=== PATIENT | male | born 1965 | race Caucasian/White ===

== ENCOUNTER → 2017-12-15 16:47 | Outpatient (CLI) | payer BC, OTHER, SELFPAY ==
--- NOTE | 2017-12-15 16:51 | DI.MRI.S_ITS ---
PROCEDURE: MR SHOULDER LT WO CON INDICATIONS: BICEPS TENDONITIS TECHNIQUE: Noncontrast oblique coronal T2 fast spin echo with fat saturation, oblique sagittal T1 spin echo and T2 fast spin echo with fat saturation, axial T1 spin echo and T2 fast spin echo with fat saturation through the shoulder. COMPARISON: None. FINDINGS: Image quality: Excellent. Rotator cuff: There is tendinosis of a low-grade articular surface partial-thickness tear involving distal supraspinatus and infraspinatus at their insertions aren't greater tuberosity of humeral head extending to the myotendinous junction. Tendinosis and low-grade intrasubstance tear involving distal infraspinatus is also seen. No full-thickness rotator cuff tendon rupture. Sagittal images demonstrate mild supraspinatus muscle atrophy. Bones and bursae: No bone marrow contusions or fractures. Mild a.c. joint and glenohumeral joint osteoarthritis is seen. The acromion demonstrates conventional anatomy, without an os acromiale. No pathologic subacromial-subdeltoid or subcoracoid bursal fluid is present. Capsule and soft tissues: In the absence of intra-articular contrast, there is suggestion of superior anterior labral tear extending from 12 to 1:00 position. The long head of the biceps tendon demonstrates normal location and morphology. The rotator interval appears normal, without fibrosis. The coracohumeral ligament is normal in thickness. IMPRESSION: 1. Tendinosis and low-grade articular surface partial-thickness tear involving distal supraspinatus and infraspinatus. Tendinosis and low-grade intrasubstance partial-thickness tear involving distal subscapularis. No full-thickness rotator cuff tendon rupture. Mild supraspinatus muscle atrophy. 2. Mild a.c. joint and glenohumeral joint osteoarthritis. 3. Suggestion of focal superior anterior labral tear at 12 to 1:00 position. Dictated by: Bolivar Pulido M.D. on 12/18/2017 at 10:56 Approved by: Bolivar Pulido M.D. on 12/18/2017 at 10:59
== END ==
PROVIDERS: Family Provider Internal Medicine; PCP Internal Medicine; Visit Provider Orthopaedic Surgery
DX: M75.22 Bicipital tendinitis, left shoulder (principal); M75.112 Incomplete rotator cuff tear or rupture of left shoulder, not specified as traumatic; M19.012 Primary osteoarthritis, left shoulder
CPT/HCPCS: 73221

== ENCOUNTER → 2018-02-20 10:37 | Outpatient (CLI) | payer BC, OTHER, SELFPAY ==
--- NOTE | 2018-02-20 | DI.US.S_ITS ---
PROCEDURE: US ABDOMEN COMPLETE INDICATIONS: ABDOMINAL PAIN TECHNIQUE: Real-time scanning was performed of the abdominal and retroperitoneal organs, with image documentation. COMPARISON: None. FINDINGS: Liver: Liver is diffusely increased in echogenicity. No focal hepatic abnormalities identified. Normal hepatic size. Gallbladder: No gallstones identified. Normal gallbladder wall. No pericholecystic fluid. Negative sonographic Elkins sign. Biliary ducts: Intrahepatic bile ducts are non-dilated. Extrahepatic bile duct caliber measures 4.0 mm. Normal is 6-7 mm or less in diameter, or 10 mm or less post-cholecystectomy. Pancreas: Visualized portions of the pancreas are sonographically normal. Spleen: Spleen is normal in size and homogeneous in echotexture. Kidneys: Kidneys are normal in size and echotexture. Right kidney measures 12.3 cm long; left kidney measures 12.8 cm long. No hydronephrosis or nephrolithiasis. No solid masses. Aorta: Visualized aorta is normal in caliber at less than 3 cm. Iliacs: Not visualized. IVC: Intrahepatic inferior vena cava is patent. Miscellaneous: No free abdominal fluid. IMPRESSION: Increased hepatic echogenicity noted possibly related to hepatic steatosis but other sources of hepatocellular disease cannot be excluded. Recommend clinical correlation. Dictated by: Josh JOSHUA Interpreted: Veronica Chang MD on 02/20/2018 at 11:58 Approved by: Veronica Chang M.D. on 02/20/2018 at 16:13
== END ==
PROVIDERS: Family Provider Internal Medicine; PCP Internal Medicine; Visit Provider Internal Medicine
DX: R10.84 Generalized abdominal pain (principal)
CPT/HCPCS: 76700

== ENCOUNTER → 2018-12-10 16:42 | Outpatient (CLI) | payer BC, OTHER, SELFPAY ==
--- NOTE | 2018-12-10 | DI.RAD.S_ITS ---
PROCEDURE: XR CHEST 2V INDICATIONS: Chronic cough TECHNIQUE: 2 views of the chest were acquired. COMPARISON: None. FINDINGS: Surgical changes and devices: None. Lungs and pleura: Lungs are clear. No pleural effusions or pneumothorax. Mediastinum: Mediastinal contours are normal. Heart size is normal. Bones and chest wall: No suspicious bony abnormalities. Soft tissues appear unremarkable. IMPRESSION: Normal for age, source of current chronic cough symptoms is not seen. Dictated by: Renny Rosen M.D. on 12/10/2018 at 17:11 Approved by: Renny Rosen M.D. on 12/10/2018 at 17:11
== END ==
PROVIDERS: PCP Internal Medicine; Visit Provider Internal Medicine
DX: R05 Cough (principal)
CPT/HCPCS: 71046

== ENCOUNTER 2020-03-07 09:52 | Emergency (ER) | payer OTHER, SELFPAY ==
[2020-03-07] VITALS (18 sets, daily range): BP systolic 142–172; BP diastolic 68–98; PULSE 68–99; RESP 18–24; TEMP 36.7; O2SAT 92–98
--- NOTE | 2020-03-07 09:56 | DI.RAD.S_ITS ---
PROCEDURE: XR CHEST 1V INDICATIONS: Chest pain TECHNIQUE: One view of the chest was acquired. COMPARISON: [facility], CR, XR CHEST 2V, 12/10/2018, 16:47. FINDINGS: Surgical changes and devices: None. Lungs and pleura: Lungs are clear. No pleural effusions or pneumothorax. Mediastinum: Mediastinal contours appear normal. Heart size is normal. Bones and chest wall: No suspicious bony lesions. Overlying soft tissues appear unremarkable. IMPRESSION: Stable radiographic evaluation of the chest without acute cardiopulmonary abnormalities or focal airspace disease. Dictated by: Chris Ni M.D. on 03/07/2020 at 9:31 Approved by: Chris Ni M.D. on 03/07/2020 at 9:31
[2020-03-07 10:14] LABS: Add Manual Diff / Slide Review NO; Basophils Absolute Auto 100 /uL (0-100); Basophils Percent Auto 0.9 % (0-2); Eosinophils Absolute Auto 100 /uL (0-450); Eosinophils Percent Auto 1.6 % (2-4); Hematocrit 41.8 % (41-53); Hemoglobin 14.5 g/dL (13.5-17.5); Lymphocytes Absolute Auto 1300 /uL (1100-4500); Lymphocytes Percent Auto 21.2 % (25-40); Mean Corpuscular HGB Conc 34.6 % (30-36); Mean Corpuscular Hemoglobin 30.7 PG (26-34); Mean Corpuscular Volume 88.6 fL (80-100); Monocytes Absolute Auto 400 /uL (0-900); Monocytes Percent Auto 6.4 % (3-14); Neutrophils Absolute Auto 4300 /uL (1500-7000); Neutrophils Percent Auto 69.9 % (50-75); Platelet Count 214 X10^3/uL (150-400); Red Blood Cell Count 4.71 X10^6/uL (4.5-5.9); Red Cell Distribution Width 13.6 % (11.6-14.8); White Blood Cell Count 6.2 X10^3/uL (4.5-11.0)
[2020-03-07 10:21] LABS: INR 1.1 (0.9-1.3); Prothrombin Time 12.3 SECONDS (10.1-12.7)
[2020-03-07 10:24] LABS: PTT Partial Thromboplastin Tim 27 SECONDS (26.4-36.2)
[2020-03-07 10:25] LABS: Alanine Aminotransferase 29 IU/L (<50); Albumin 4.4 g/dL (3.5-5.0); Albumin Globulin Ratio 1.5 (1.0-2.8); Alkaline Phosphatase 64 U/L (38-126); Aspartate Aminotransferase 26 IU/L (17-59); BUN Creatinine Ratio 18.1 (6-22); Bilirubin Total 0.4 mg/dL (0.2-1.3); Blood Urea Nitrogen 17 mg/dL (9-20); Calcium 9.1 mg/dL (8.4-10.2); Carbon Dioxide 28 mmol/L (22-32); Chloride 100 mmol/L (98-107); Creatine Kinase 38 U/L (55-170); Estimated Glomerular Filt Rate > 60.0 mL/min (>60); Glucose 177 mg/dL (70-100); HEMOLYSIS < 15 (0-50); Lipase 83 U/L (23-300); Potassium 4.3 mmol/L (3.4-5.1); Sodium 137 mmol/L (137-145); Total Protein 7.4 g/dL (6.3-8.2)
[2020-03-07 10:36] LABS: NT-proBNP (BNP-Adult 18+) 23 pg/mL (<125); Troponin I < 0.012 ng/mL (0.01-0.034)
--- NOTE | 2020-03-07 10:38 | ED_ITS ---
HPI - Chest Pain General Chief Complaint: Chest Pain Stated Complaint: chest pressure Time Seen by Provider: 03/07/20 09:55 Source: patient and EMS Mode of arrival: EMS Limitations: no limitations History of Present Illness HPI narrative: Patient is a 54-year-old male with a history of thyroid/hypertension/hyperlipidemia and depression issues here for evaluation approximately 2 hours after he states he was sitting on his couch at home and got a very flushed sensation. He described in his chest and also radiating into his arms. No nausea or vomiting. He did have chest pressure at the time. He did take 4 baby aspirin per EMS recommendation. When EMS arrived they did give him nitroglycerin which resolved his symptoms. No fevers, no headache. The time my evaluation patient was symptom free other than feeling somewhat jittery. Related Data Home Medications Medication Instructions Recorded Confirmed fenofibrate micronized 134 mg 134 mg PO DAILY 09/05/18 03/07/20 capsule lansoprazole 15 mg capsule,delayed 15 mg PO QAM 09/05/18 03/07/20 release lisinopril 20 mg tablet 20 mg PO QAM 09/05/18 03/07/20 trazodone 50 mg tablet 50 mg PO BEDTIME PRN 09/05/18 03/07/20 escitalopram oxalate 20 mg PO DAILY 03/07/20 03/07/20 levothyroxine [Synthroid] 75 mcg PO DAILY 03/07/20 03/07/20 rosuvastatin 5 mg PO QAM 03/07/20 03/07/20 Allergies Allergy/AdvReac Type Severity Reaction Status Date / Time No Known Drug Allergies Allergy Unverified 02/04/19 16:13 Review of Systems Constitutional Constitutional: Denies fever(s) and Denies headache(s) ENT Ears, Nose, Mouth, and Throat: Denies headache(s) Cardiovascular Cardiovascular: Reports chest pain (Chest pressure), Denies lightheadedness and Reports dyspnea Respiratory Respiratory: Reports dyspnea Gastrointestinal Gastrointestinal: Denies abdominal pain, Denies nausea and Denies vomiting Genitourinary Genitourinary: Denies dysuria Genitourinary: Denies dysuria Musculoskeletal Musculoskeletal: Denies arthralgias and Denies myalgias Integumentary/Breasts Skin/Breast: Denies rash Neurologic Neurologic: Denies behavioral changes and Denies headache(s) Psychiatric Psychiatric: Denies behavioral changes Hematologic/Lymphatic Hematologic/Lymphatic: Denies easy bleeding and Denies easy bruising Allergic/Immunologic Allergic/Immunologic: Denies urticaria Patient History Medical History Allergic rhinitis (Chronic) Anxiety (Chronic) Depression (Chronic) Fatigue (Chronic ~01/2019) GERD with esophagitis (Chronic) Hyperlipidemia (Chronic) Hypertension (Chronic) Hypertriglyceridemia (Chronic) Hypothyroidism (acquired) (Chronic) Insomnia (Chronic) [place] (nonalcoholic steatohepatitis) (Chronic) Nocturnal hypoxemia (Chronic ~01/2019) Obesity (BMI 30-39.9) (Chronic) Obstructive sleep apnea (Chronic ~01/2019) Snoring (Chronic) Family History (Updated 12/25/19 @ 17:20 by VELMA Miller) Father Prostate cancer Mother Atrial fibrillation Family/Other Rheumatoid arthritis Social History Smoking Status: Former smoker alcohol intake: current (2 drinks nightly) substance use type: does not use Smoking Status: Former smoker alcohol intake frequency: 3 or more drinks per day Substance Use Type: does not use Exam Initial Vital Signs Initial Vital Signs: Vital Signs Temperature 98.1 F 03/07/20 09:54 Pulse Rate 95 H 03/07/20 09:54 Respiratory Rate 20 03/07/20 09:54 Blood Pressure 151/87 H 03/07/20 09:54 Pulse Oximetry 98 03/07/20 09:54 Const General: cooperative and comfortable Limitations: mental status not altered HENMT Head: normal to inspection and normocephalic Resp Effort & Inspection: normal respiratory effort Auscultation: clear to auscultation bilaterally Cardio Rate: regular rate Rhythm: regular rhythm GI Inspection: non-distended Palpation: soft Skin Lesions: no lesions Rashes: no rashes Neuro General: patient alert, patient awake and patient oriented x3 Cognition: normal cognition Speech: speech normal Extrem General: normal to inspection and capillary refill normal Psych Appearance: grossly normal and well kempt Scores GCS [place] coma scale eye opening: Spontaneous Pietro coma scale verbal response: Orientated [place] coma scale motor response: Obey commands Pietro coma scale total score: 15 HEART Score Heart Score history: Moderately Suspicious Heart Score EKG: Normal Heart Score Age: 45-64 years old Heart Score risk factors: 1-2 risk factors Heart Score troponin: < or = to normal limit Heart Score Total: 3 Course Orders Ordered: ED Orders 03/07/20 09:56 XR chest 1V Stat EKG-12 Lead Stat 03/07/20 10:05 Complete Blood Count AUTO DIFF Stat Comprehensive Metabolic Panel Stat Lipase Stat NT-proBNP (BNP-Adult 18+) Stat Partial Thromboplastin Time Stat Prothrombin Time INR Stat Troponin & CK Cardiac Panel Stat 03/07/20 10:25 COVID19 -ED/INPAT/OR/L&D Stat 03/07/20 10:50 Troponin I Stat 03/07/20 13:27 Troponin I Stat Vital Signs Vital signs: Vital Signs - 8 hr 03/07/20 09:54 03/07/20 10:07 03/07/20 10:15 Temperature 98.1 F Pulse Rate 95 H 92 H 99 H Respiratory Rate 20 23 22 Blood Pressure 151/87 H 172/98 H Pulse Oximetry 98 94 93 03/07/20 10:30 03/07/20 10:45 03/07/20 11:00 Temperature Pulse Rate 94 H 80 89 Respiratory Rate 20 18 24 Blood Pressure 152/79 H 159/81 H 166/80 H Pulse Oximetry 92 93 92 03/07/20 11:16 03/07/20 11:30 03/07/20 11:46 Temperature Pulse Rate 88 80 80 Respiratory Rate 22 22 19 Blood Pressure 142/92 H 157/74 H 164/82 H Pulse Oximetry 95 93 92 03/07/20 12:00 03/07/20 12:15 03/07/20 12:30 Temperature Pulse Rate 79 77 74 Respiratory Rate 22 18 19 Blood Pressure 157/73 H 146/80 H 144/68 H Pulse Oximetry 92 93 92 03/07/20 12:45 03/07/20 13:35 Temperature Pulse Rate 77 73 Respiratory Rate 19 19 Blood Pressure 150/69 H 155/86 H Pulse Oximetry 92 MDM - Chest Pain Lab Data Attestation: I reviewed the patient's lab results. Result diagrams: 03/07/20 10:05 03/07/20 10:05 Labs: Lab Results 03/07/20 03/07/20 03/07/20 Range/Units 10:05 10:05 10:05 WBC 6.2 (4.5-11.0) X10^3/uL RBC 4.71 (4.5-5.9) X10^6/uL Hgb 14.5 (13.5-17.5) g/dL Hct 41.8 (41-53) % MCV 88.6 (80-100) fL MCH 30.7 (26-34) PG MCHC 34.6 (30-36) % RDW 13.6 (11.6-14.8) % Plt Count 214 (150-400) X10^3/uL Neut % (Auto) 69.9 (50-75) % Lymph % (Auto) 21.2 L (25-40) % [place] % (Auto) 6.4 (3-14) % Eos % (Auto) 1.6 L (2-4) % Baso % (Auto) 0.9 (0-2) % Neut # (Auto) 4300 (9738-2234) /uL Lymph # (Auto) 1300 (4818-2003) /uL [place] # (Auto) 400 (0-900) /uL Eos # (Auto) 100 (0-450) /uL Baso # (Auto) 100 (0-100) /uL PT 12.3 (10.1-12.7) SECONDS INR 1.1 (0.9-1.3) APTT 27 (26.4-36.2) SECONDS Sodium 137 (137-145) mmol/L Potassium 4.3 (3.4-5.1) mmol/L Chloride 100 (98-107) mmol/L Carbon Dioxide 28 (22-32) mmol/L BUN 17 (9-20) mg/dL Creatinine 0.94 (0.66-1.25) mg/dL Estimated GFR > 60.0 (>60) mL/min BUN/Creatinine Ratio 18.1 (6-22) Glucose 177 H (70-100) mg/dL Calcium 9.1 (8.4-10.2) mg/dL Total Bilirubin 0.4 (0.2-1.3) mg/dL AST 26 (17-59) IU/L ALT 29 (<50) IU/L Alkaline Phosphatase 64 (38-126) U/L Total Creatine Kinase 38 L (55-170) U/L CK-MB (CK-2) TNP CK-MB (CK-2) Rel Index TNP Troponin I < 0.012 (0.01-0.034) ng/mL NT-Pro-B Natriuret Pep 23 (<125) pg/mL Total Protein 7.4 (6.3-8.2) g/dL Albumin 4.4 (3.5-5.0) g/dL Globulin 3.0 (1.7-4.1) g/dL Albumin/Globulin Ratio 1.5 (1.0-2.8) Lipase 83 (23-300) U/L COVID-19 PCR (Negative) 03/07/20 03/07/20 03/07/20 Range/Units 10:25 10:50 13:27 WBC (4.5-11.0) X10^3/uL RBC (4.5-5.9) X10^6/uL Hgb (13.5-17.5) g/dL Hct (41-53) % MCV (80-100) fL MCH (26-34) PG MCHC (30-36) % RDW (11.6-14.8) % Plt Count (150-400) X10^3/uL Neut % (Auto) (50-75) % Lymph % (Auto) (25-40) % [place] % (Auto) (3-14) % Eos % (Auto) (2-4) % Baso % (Auto) (0-2) % Neut # (Auto) (1413-3878) /uL Lymph # (Auto) (7317-7628) /uL [place] # (Auto) (0-900) /uL Eos # (Auto) (0-450) /uL Baso # (Auto) (0-100) /uL PT (10.1-12.7) SECONDS INR (0.9-1.3) APTT (26.4-36.2) SECONDS Sodium (137-145) mmol/L Potassium (3.4-5.1) mmol/L Chloride (98-107) mmol/L Carbon Dioxide (22-32) mmol/L BUN (9-20) mg/dL Creatinine (0.66-1.25) mg/dL Estimated GFR (>60) mL/min BUN/Creatinine Ratio (6-22) Glucose (70-100) mg/dL Calcium (8.4-10.2) mg/dL Total Bilirubin (0.2-1.3) mg/dL AST (17-59) IU/L ALT (<50) IU/L Alkaline Phosphatase (38-126) U/L Total Creatine Kinase (55-170) U/L CK-MB (CK-2) CK-MB (CK-2) Rel Index Troponin I < 0.012 < 0.012 (0.01-0.034) ng/mL NT-Pro-B Natriuret Pep (<125) pg/mL Total Protein (6.3-8.2) g/dL Albumin (3.5-5.0) g/dL Globulin (1.7-4.1) g/dL Albumin/Globulin Ratio (1.0-2.8) Lipase (23-300) U/L COVID-19 PCR Negative (Negative) Imaging Data Chest x-ray: Radiologist's Impression: [address] [address] XRay Report Signed Patient: Jovanni Childs RMR#: [id number] : 1965Acct:[id number] Age/Sex: 54 / MDate of Service: 03/07/20 Loc: ED Accession Number: [id number] Procedure: XR chest 1V Ordering Provider: Indra Restrepo D.O. PROCEDURE: XR CHEST 1V INDICATIONS: Chest pain TECHNIQUE: One view of the chest was acquired. COMPARISON: [facility], [place], XR CHEST 2V, 12/10/2018, 16:47. FINDINGS: Surgical changes and devices: None. Lungs and pleura: Lungs are clear. No pleural effusions or pneumothorax. Mediastinum: Mediastinal contours appear normal. Heart size is normal. Bones and chest wall: No suspicious bony lesions. Overlying soft tissues appear unremarkable. IMPRESSION: Stable radiographic evaluation of the chest without acute cardiopulmonary abnormalities or focal airspace disease. Dictated by: Chris Ni M.D. on 03/07/2020 at 9:31 Approved by: Chris Ni M.D. on 03/07/2020 at 9:31 ECG Data Attestation: I personally reviewed and interpreted this ECG as follows: Prior ECG tracings: not available for review Interpretation: Sinus rhythm Ventricular rate 92 Occasional PVC Normal QRS Normal QTC Incomplete right bundle branch block No ST T wave changes MDM Narrative Medical decision making narrative: Troponins negative x2. EKG is nonspecific. Low risk heart score. Chest x-ray is unremarkable. Will have patient follow-up with his primary doctor to discuss the indications for a stress test. I did discuss this with him. We discussed return precautions and follow-up instructions. He expressed understanding and agreement. Discharge Plan Departure Patient Disposition: Home Clinical Impression: Atypical chest pain Instructions: DI for Atypical Chest Pain Activity Restrictions/Additional Instructions: Recommend you continue all of your medications as directed. Contact your primary provider to discuss follow-up and the indications for stress test. Return to the emergency department for any new or worsening symptoms Prescriptions: No Action levothyroxine [Synthroid] 75 mcg Tablet 75 mcg PO DAILY RF: 0 escitalopram oxalate 20 mg Tablet 20 mg PO DAILY RF: 0 rosuvastatin 5 mg Tablet 5 mg PO QAM RF: 0 trazodone 50 mg tablet 50 mg PO BEDTIME PRN (Reason: Insomnia) RF: 0 lisinopril 20 mg tablet 20 mg PO QAM RF: 0 fenofibrate micronized 134 mg capsule 134 mg PO DAILY RF: 0 lansoprazole 15 mg capsule,delayed release(DR/EC) 15 mg PO QAM RF: 0 Referrals: Lakeisha Macias [Primary Care Provider] -
[2020-03-07 10:47] LABS: COVID19 -Nasal RAPID Negative (Negative)
[2020-03-07 11:26] LABS: Troponin I < 0.012 ng/mL (0.01-0.034)
--- NOTE | 2020-03-07 11:53 | PC.NURSE ---
patient resting on stretcher, denies needs at this time. Denies chest pains/pressure.
[2020-03-07 14:07] LABS: Troponin I < 0.012 ng/mL (0.01-0.034)
== END 2020-03-07 14:50 | disposition home or self-care (01) ==
PROVIDERS: Emergency Provider Emergency Medicine; PCP Family Medicine
DX: R07.89 Other chest pain (principal); R06.00 Dyspnea, unspecified
CPT/HCPCS: 36415; 71045; 80053; 82550; 83690; 83880; 84484; 85025; 85610; 85730; 87635; 93005; 99284

== ENCOUNTER 2020-06-26 19:34 | Emergency (ER) | payer OTHER, SELFPAY ==
[2020-06-26] VITALS (15 sets, daily range): BP systolic 157–197; BP diastolic 73–90; PULSE 77–90; RESP 15–22; TEMP 36.6; O2SAT 93–99
--- NOTE | 2020-06-26 19:53 | DI.RAD.S_ITS ---
PROCEDURE: XR CHEST 1V INDICATIONS: chest pain TECHNIQUE: One view of the chest was acquired. COMPARISON: [facility], CR, XR CHEST 1V, 03/07/2020, 10:10. FINDINGS: Surgical changes and devices: None. Lungs and pleura: Lungs are clear. No pleural effusions or pneumothorax. Mediastinum: Mediastinal contours appear normal. Heart size is normal. Bones and chest wall: No suspicious bony lesions. Overlying soft tissues appear unremarkable. IMPRESSION: 1. No acute cardiopulmonary disease. Dictated by: Lindsay Jacobson M.D. on 06/26/2020 at 20:45 Approved by: Lindsay Jacobson M.D. on 06/26/2020 at 20:46
[2020-06-26 20:18] LABS: Prothrombin Time 11.8 SECONDS (10.1-12.7)
[2020-06-26 20:21] LABS: Add Manual Diff / Slide Review NO; Alanine Aminotransferase 30 IU/L (<50); Albumin 4.6 g/dL (3.5-5.0); Albumin Globulin Ratio 1.6 (1.0-2.8); Alkaline Phosphatase 66 U/L (38-126); Aspartate Aminotransferase 28 IU/L (17-59); BUN Creatinine Ratio 20.2 (6-22); Basophils Absolute Auto 100 /uL (0-100); Basophils Percent Auto 0.9 % (0-2); Bilirubin Total 0.3 mg/dL (0.2-1.3); Blood Urea Nitrogen 19 mg/dL (9-20); Calcium 9.6 mg/dL (8.4-10.2); Carbon Dioxide 27 mmol/L (22-32); Chloride 100 mmol/L (98-107); Creatine Kinase 54 U/L (55-170); Eosinophils Absolute Auto 200 /uL (0-450); Eosinophils Percent Auto 2.2 % (2-4); Estimated Glomerular Filt Rate > 60.0 mL/min (>60); Globulin 2.9 g/dL (1.7-4.1); Glucose 189 mg/dL (70-100); HEMOLYSIS 18 (0-50); Hematocrit 42.7 % (41-53); Hemoglobin 14.6 g/dL (13.5-17.5); Lipase 92 U/L (23-300); Lymphocytes Absolute Auto 1400 /uL (1100-4500); Lymphocytes Percent Auto 19.2 % (25-40); Mean Corpuscular HGB Conc 34.1 % (30-36); Mean Corpuscular Hemoglobin 30.6 PG (26-34); Mean Corpuscular Volume 89.5 fL (80-100); Monocytes Absolute Auto 600 /uL (0-900); Monocytes Percent Auto 8.8 % (3-14); Neutrophils Absolute Auto 5000 /uL (1500-7000); Neutrophils Percent Auto 68.9 % (50-75); PTT Partial Thromboplastin Tim 30 SECONDS (26.4-36.2); Platelet Count 234 X10^3/uL (150-400); Potassium 3.6 mmol/L (3.4-5.1); Red Blood Cell Count 4.77 X10^6/uL (4.5-5.9); Red Cell Distribution Width 13.6 % (11.6-14.8); Sodium 134 mmol/L (137-145); Total Protein 7.5 g/dL (6.3-8.2); White Blood Cell Count 7.3 X10^3/uL (4.5-11.0)
[2020-06-26 20:33] LABS: Troponin I < 0.012 ng/mL (0.01-0.034)
[2020-06-26 20:57] LABS: NT-proBNP (BNP-Adult 18+) 12 pg/mL (<125)
[2020-06-26 20:59] LABS: COVID19 -Nasal RAPID Negative (Negative)
--- NOTE | 2020-06-26 23:54 | ED.ARRPALP ---
HPI - Arrhythmia/Palpitations General Chief Complaint: Arrhythmia/Palpitations Stated Complaint: states blood pressure 192/84, SOB Time Seen by Provider: 06/26/20 23:30 Source: patient Mode of arrival: Ambulatory Limitations: no limitations History of Present Illness HPI narrative: This is a 54-year-old male comes to the emergency department with complaint of feeling his blood pressure was high. Patient states he could feel his heart beating in his chest. He states it was not a prescribed pressure pushing down on his chest but the pressure of the beat of the heart. He checked at he was consistently 180s in 170s. He denies dizziness or lightheadedness, no syncope. No shortness of breath. No nausea, no vomiting, no diaphoresis. No swelling in his extremities. No other GI or urinary symptoms. He has a history of hypertension, dyslipidemia with elevated triglycerides, hypothyroidism, GERD and mood disorder. Patient takes an aspirin daily. Patient states he was on hydrochlorothiazide and this was stopped because it made him constipated. He was started on amlodipine 5 mg of week ago. He has been checking his pressures regularly and they continue to be elevated in the 160 range. He states prior to several months ago he was consistently in the 140s. Patient states he had a stress test on June 06 he was told ?it did look good? by the physician at the stress test did not get any further information. His primary care physician afterwards contacted him for a breathing test and pulmonary imaging. Patient has not had any [id number] contact or explanation about the rest of his findings. Related Data Home Medications Medication Instructions Recorded Confirmed fenofibrate micronized 134 mg 134 mg PO DAILY 09/05/18 03/07/20 capsule lansoprazole 15 mg capsule,delayed 15 mg PO QAM 09/05/18 03/07/20 release lisinopril 20 mg tablet 20 mg PO QAM 09/05/18 03/07/20 trazodone 50 mg tablet 50 mg PO BEDTIME PRN 09/05/18 03/07/20 escitalopram oxalate 20 mg PO DAILY 03/07/20 03/07/20 levothyroxine [Synthroid] 75 mcg PO DAILY 03/07/20 03/07/20 rosuvastatin 5 mg PO QAM 03/07/20 03/07/20 Allergies Allergy/AdvReac Type Severity Reaction Status Date / Time No Known Drug Allergies Allergy Unverified 02/04/19 16:13 Review of Systems Review of Systems ROS Unobtainable: All systems reviewed & are unremarkable except as noted in HPI and below Patient History Medical History Allergic rhinitis Anxiety Depression Fatigue (~01/2019) GERD with esophagitis Hyperlipidemia Hypertension Hypertriglyceridemia Hypothyroidism (acquired) Insomnia QUINTANA (nonalcoholic steatohepatitis) Nocturnal hypoxemia (~01/2019) Obesity (BMI 30-39.9) Obstructive sleep apnea (~01/2019) Snoring Family History (Updated 12/25/19 @ 17:20 by VELMA Miller) Father Prostate cancer Mother Atrial fibrillation Family/Other Rheumatoid arthritis Social History Smoking Status: Former smoker alcohol intake: current (2 drinks nightly) substance use type: does not use Smoking Status: Former smoker alcohol intake frequency: 3 or more drinks per day Substance Use Type: does not use Exam Narrative Exam Narrative: GENERAL: Alert and oriented x three, obese, well-appearing male in mild distress. HEENT: Head normocephalic, atraumatic, EOMI, pupils reactive, face symmetric, moist mucous membranes NECK: Supple, full range of motion CARDIOVASCULAR: Regular rate and rhythm without murmurs, rubs or gallops. RESPIRATORY: Breath sounds equal bilaterally, no wheezes rales or rhonchi. ABDOMEN: Soft, nontender. Normoactive bowel sounds all 4 quadrants. No guarding or rebound, rigidity, no mass : No CVA tenderness EXTREMITIES: Normal range of motion, no clubbing or edema. Neurovascularly intact NEUROLOGICAL: Cranial nerves II through XII grossly intact. Moving all extremities SKIN: Warm, dry, no petechiae, no rashes or lesions. Initial Vital Signs Initial Vital Signs: Vital Signs Temperature 97.9 F 06/26/20 19:42 Pulse Rate 90 06/26/20 19:42 Respiratory Rate 18 06/26/20 19:42 Blood Pressure 179/90 H 06/26/20 19:42 Pulse Oximetry 99 06/26/20 19:42 Course Orders Ordered: ED Orders 06/26/20 19:53 XR chest 1V Stat 06/26/20 20:00 Complete Blood Count AUTO DIFF Stat Comprehensive Metabolic Panel Stat Lipase Stat MAG [Magnesium] Stat NT-proBNP (BNP-Adult 18+) Stat Partial Thromboplastin Time Stat Prothrombin Time INR Stat Troponin & CK Cardiac Panel Stat 06/26/20 20:46 COVID19 Stat 06/26/20 23:30 EKG-12 Lead Stat Vital Signs Vital signs: Vital Signs - 8 hr 06/26/20 20:28 06/26/20 20:30 06/26/20 20:31 Pulse Rate 85 86 87 Respiratory Rate 17 22 18 Blood Pressure 175/85 H 194/86 H Pulse Oximetry 95 95 95 06/26/20 21:00 06/26/20 21:01 06/26/20 21:30 Pulse Rate 83 85 83 Respiratory Rate 17 21 19 Blood Pressure 182/88 H 189/87 H Pulse Oximetry 94 94 94 06/26/20 22:00 06/26/20 22:30 06/26/20 23:13 Pulse Rate 83 85 77 Respiratory Rate 20 16 Blood Pressure 197/89 H 192/87 H Pulse Oximetry 95 96 97 06/26/20 23:14 06/26/20 23:30 06/27/20 00:00 Pulse Rate 85 79 81 Respiratory Rate 16 18 29 H Blood Pressure 168/73 H Pulse Oximetry 95 93 96 06/27/20 00:20 06/27/20 00:26 Pulse Rate 80 83 Respiratory Rate 20 17 Blood Pressure 167/82 H 167/82 H Pulse Oximetry 95 94 MDM - Arrhythmia/Palpitations Lab Data Attestation: I reviewed the patient's lab results. Result diagrams: 06/26/20 20:00 06/26/20 20:00 Labs: Lab Results 06/26/20 06/26/20 06/26/20 Range/Units 20:00 20:00 20:00 WBC 7.3 (4.5-11.0) X10^3/uL RBC 4.77 (4.5-5.9) X10^6/uL Hgb 14.6 (13.5-17.5) g/dL Hct 42.7 (41-53) % MCV 89.5 (80-100) fL MCH 30.6 (26-34) PG MCHC 34.1 (30-36) % RDW 13.6 (11.6-14.8) % Plt Count 234 (150-400) X10^3/uL Neut % (Auto) 68.9 (50-75) % Lymph % (Auto) 19.2 L (25-40) % Wilcox % (Auto) 8.8 (3-14) % Eos % (Auto) 2.2 (2-4) % Baso % (Auto) 0.9 (0-2) % Neut # (Auto) 5000 (2328-5575) /uL Lymph # (Auto) 1400 (4006-5851) /uL Wilcox # (Auto) 600 (0-900) /uL Eos # (Auto) 200 (0-450) /uL Baso # (Auto) 100 (0-100) /uL PT 11.8 (10.1-12.7) SECONDS INR 1.0 (0.9-1.3) APTT 30 (26.4-36.2) SECONDS Sodium 134 L (137-145) mmol/L Potassium 3.6 (3.4-5.1) mmol/L Chloride 100 (98-107) mmol/L Carbon Dioxide 27 (22-32) mmol/L BUN 19 (9-20) mg/dL Creatinine 0.94 (0.66-1.25) mg/dL Estimated GFR > 60.0 (>60) mL/min BUN/Creatinine Ratio 20.2 (6-22) Glucose 189 H (70-100) mg/dL Calcium 9.6 (8.4-10.2) mg/dL Magnesium (1.6-2.3) mg/dL Total Bilirubin 0.3 (0.2-1.3) mg/dL AST 28 (17-59) IU/L ALT 30 (<50) IU/L Alkaline Phosphatase 66 (38-126) U/L Total Creatine Kinase 54 L (55-170) U/L CK-MB (CK-2) TNP CK-MB (CK-2) Rel Index TNP Troponin I < 0.012 (0.01-0.034) ng/mL NT-Pro-B Natriuret Pep (<125) pg/mL Total Protein 7.5 (6.3-8.2) g/dL Albumin 4.6 (3.5-5.0) g/dL Globulin 2.9 (1.7-4.1) g/dL Albumin/Globulin Ratio 1.6 (1.0-2.8) Lipase 92 (23-300) U/L SARS-CoV-2 (PCR) (Negative) 06/26/20 06/26/20 Range/Units 20:00 20:46 WBC (4.5-11.0) X10^3/uL RBC (4.5-5.9) X10^6/uL Hgb (13.5-17.5) g/dL Hct (41-53) % MCV (80-100) fL MCH (26-34) PG MCHC (30-36) % RDW (11.6-14.8) % Plt Count (150-400) X10^3/uL Neut % (Auto) (50-75) % Lymph % (Auto) (25-40) % Wilcox % (Auto) (3-14) % Eos % (Auto) (2-4) % Baso % (Auto) (0-2) % Neut # (Auto) (4371-9760) /uL Lymph # (Auto) (9651-3670) /uL Wilcox # (Auto) (0-900) /uL Eos # (Auto) (0-450) /uL Baso # (Auto) (0-100) /uL PT (10.1-12.7) SECONDS INR (0.9-1.3) APTT (26.4-36.2) SECONDS Sodium (137-145) mmol/L Potassium (3.4-5.1) mmol/L Chloride (98-107) mmol/L Carbon Dioxide (22-32) mmol/L BUN (9-20) mg/dL Creatinine (0.66-1.25) mg/dL Estimated GFR (>60) mL/min BUN/Creatinine Ratio (6-22) Glucose (70-100) mg/dL Calcium (8.4-10.2) mg/dL Magnesium 2.0 (1.6-2.3) mg/dL Total Bilirubin (0.2-1.3) mg/dL AST (17-59) IU/L ALT (<50) IU/L Alkaline Phosphatase (38-126) U/L Total Creatine Kinase (55-170) U/L CK-MB (CK-2) CK-MB (CK-2) Rel Index Troponin I (0.01-0.034) ng/mL NT-Pro-B Natriuret Pep 12 (<125) pg/mL Total Protein (6.3-8.2) g/dL Albumin (3.5-5.0) g/dL Globulin (1.7-4.1) g/dL Albumin/Globulin Ratio (1.0-2.8) Lipase (23-300) U/L SARS-CoV-2 (PCR) Negative (Negative) Imaging Data Chest x-ray: Radiologist's Impresson: Jovanni Childs 54 M [address] [id number] ReportSigned Patient: Jovanni Childs RMR#: [id number]: 1965Acct:[id number]/Sex: 54 / MDate of Service: 06/26/20Loc: EDAccession Number: [id number] Procedure: XR chest 1V Ordering Provider: Casandra Gilliam D.O. PROCEDURE: XR CHEST 1V INDICATIONS: chest pain TECHNIQUE: One view of the chest was acquired. COMPARISON: [facility], , XR CHEST 1V, 03/07/2020, 10:10. FINDINGS: Surgical changes and devices: None. Lungs and pleura: Lungs are clear. No pleural effusions or pneumothorax. Mediastinum: Mediastinal contours appear normal. Heart size is normal. Bones and chest wall: No suspicious bony lesions. Overlying soft tissues appear unremarkable. IMPRESSION: 1. No acute cardiopulmonary disease. Dictated by: Lindsay Jacobson M.D. on 06/26/2020 at 20:45 Approved by: Lindsay Jacobson M.D. on 06/26/2020 at 20:46 ECG Data Attestation: I personally reviewed and interpreted this ECG as follows: Interpretation: Normal sinus rhythm incomplete right bundle branch. Rate of 87, OH interval 150 QRS of 108 QTC 425. Patient has prior EKG from 03/07/2020 which appears similar. EKG 2. Shows normal sinus rhythm rate of 80, OH interval 168 QRS of 98 QTC 424. Patient has similar appearing EKG as previous. [facility] Narrative Medical decision making narrative: This is a 54-year-old male comes in with complaint of hypertension and palpitations. No chest pressure or shortness of breath appreciated other cardiac equivalents. Patient was recently had his amlodipine started after having his hydrochlorothiazide stopped. Patient's labs showed no acute changes. EKG showed no acute changes. Patient is hypertensive here in the department. He did take his amlodipine this evening 1800. [facility] [employer] he cannot reach his physicians until Monday, they do not have a nurse hotline over the weekend. We discussed if he is persistently hypertensive to go ahead and add 1 tablet or increase his amlodipine to 10 mg . If he has any other new or concerning symptoms he is to return. Patient expresses understanding. We discussed return precautions and signs and symptoms that would warrant immediate return. Discharge Plan Departure Patient Disposition: Home Clinical Impression: Hypertension, Palpitation Instructions: Essential Hypertension Activity Restrictions/Additional Instructions: Follow up with your physician on Monday. If your blood pressure is persistently greater than 160 increase your amlodipine from 5 mg (1 tab) to 10 mg (2 tabs). Return to the emergency department for fevers, new chest pain or pressure, shortness of breath, lightheadedness or passing out, diaphoresis or sweating, persistent nausea, swelling of her extremities or other new or concerning symptoms. Prescriptions: No Action levothyroxine [Synthroid] 75 mcg Tablet 75 mcg PO DAILY RF: 0 escitalopram oxalate 20 mg Tablet 20 mg PO DAILY RF: 0 rosuvastatin 5 mg Tablet 5 mg PO QAM RF: 0 trazodone 50 mg tablet 50 mg PO BEDTIME PRN (Reason: Insomnia) RF: 0 lisinopril 20 mg tablet 20 mg PO QAM RF: 0 fenofibrate micronized 134 mg capsule 134 mg PO DAILY RF: 0 lansoprazole 15 mg capsule,delayed release(DR/EC) 15 mg PO QAM RF: 0 Referrals: Lakeisha Macias [Primary Care Provider] -
[2020-06-27] VITALS: PULSE 81; RESP 29; O2SAT 96
[2020-06-27 00:20] VITALS: BP 167/82; PULSE 80; RESP 20; O2SAT 95
[2020-06-27 00:26] VITALS: BP 167/82; PULSE 83; RESP 17; O2SAT 94
== END 2020-06-27 00:28 | disposition home or self-care (01) ==
PROVIDERS: Emergency Provider Emergency Medicine; PCP Family Medicine
DX: I10 Essential (primary) hypertension (principal); R00.2 Palpitations; R07.9 Chest pain, unspecified; E78.5 Hyperlipidemia, unspecified; E03.9 Hypothyroidism, unspecified; Z79.82 Long term (current) use of aspirin; E66.9 Obesity, unspecified; Z20.822 Contact with and (suspected) exposure to COVID-19
CPT/HCPCS: 36415; 71045; 80053; 82550; 83690; 83735; 83880; 84484; 85025; 85610; 85730; 87635; 93005; 99283; 99284; C9803

== ENCOUNTER 2020-11-04 19:20 | Emergency (ER) | payer OTHER, SELFPAY ==
[2020-11-04 19:20] VITALS: BP 177/87; PULSE 80; RESP 18; TEMP 36.6; O2SAT 98
--- NOTE | 2020-11-04 19:38 | DI.RAD.S_ITS ---
PROCEDURE: XR CHEST 2V INDICATIONS: Left-sided chest discomfort TECHNIQUE: 2 views of the chest were acquired. COMPARISON: [facility], , XR CHEST 1V, 06/26/2020, 20:10. FINDINGS: Surgical changes and devices: None. Lungs and pleura: Scattered subsegmental scarring and/or atelectasis. No acute consolidation. No pleural effusions or pneumothorax. Mediastinum: Mediastinal contours are normal. Heart size is normal. Bones and chest wall: No suspicious bony abnormalities. Soft tissues appear unremarkable. IMPRESSION: No acute disease. Dictated by: Bulmaro Marie M.D. on 11/04/2020 at 20:02 Approved by: Bulmaro Marie M.D. on 11/04/2020 at 20:03
--- NOTE | 2020-11-04 20:29 | ED.CHESTPAIN ---
HPI - Chest Pain General Chief Complaint: Chest Pain Stated Complaint: left chest pain, pain meds not working Time Seen by Provider: 11/04/20 19:27 Source: patient Mode of arrival: Ambulatory Limitations: no limitations History of Present Illness HPI narrative: Patient is a 54-year-old male who is here for evaluation of left-sided chest discomfort. He states the symptoms started this morning and have worsened throughout the day. He did take some medications at home that he had without any improvement. He does describe the pain that is worse with taking a deep breath. Has not had any cough. No fevers. He also has discomfort with movement of his left arm. He can also pinpoint the discomfort on his left flank. It is somewhat worse with palpation. There is no skin rash over the area. Related Data Home Medications Medication Instructions Recorded Confirmed fenofibrate micronized 134 mg 134 mg PO DAILY 09/05/18 08/13/20 capsule lansoprazole 15 mg capsule,delayed 15 mg PO QAM 09/05/18 08/13/20 release lisinopril 20 mg tablet 20 mg PO QAM 09/05/18 08/13/20 trazodone 50 mg tablet 50 mg PO BEDTIME PRN 09/05/18 08/13/20 escitalopram oxalate 20 mg tablet 20 mg PO DAILY 03/07/20 08/13/20 levothyroxine 75 mcg tablet 75 mcg PO DAILY 03/07/20 08/13/20 (Synthroid) rosuvastatin 5 mg tablet 5 mg PO QAM 03/07/20 08/13/20 amlodipine 10 mg tablet 10 mg PO DAILY 08/13/20 08/13/20 Allergies Allergy/AdvReac Type Severity Reaction Status Date / Time No Known Drug Allergies Allergy Unverified 08/13/20 15:57 Review of Systems Constitutional Constitutional: Reports system reviewed and no additional complaints, except as documented ENT Ears, Nose, Mouth, and Throat: Denies sore throat Cardiovascular Cardiovascular: Reports as per HPI Respiratory Comments: Pain inspiration Gastrointestinal Gastrointestinal: Reports system reviewed and no additional complaints, except as documented Musculoskeletal Comments: Left-sided chest pain with movement of the left arm otherwise no left arm symptoms Integumentary/Breasts Skin/Breast: Denies rash Neurologic Neurologic: Reports system reviewed and no additional complaints, except as documented Psychiatric Psychiatric: Reports system reviewed and no additional complaints, except as documented Hematologic/Lymphatic On Anticoagulants: No Allergic/Immunologic Allergic/Immunologic: Reports system reviewed and no additional complaints, except as documented Patient History Medical History Allergic rhinitis Anxiety Depression Fatigue (~01/2019) GERD with esophagitis Hyperlipidemia Hypertension Hypertriglyceridemia Hypothyroidism (acquired) Insomnia QUINTANA (nonalcoholic steatohepatitis) Nocturnal hypoxemia (~01/2019) Obesity (BMI 30-39.9) Obstructive sleep apnea (~01/2019) Snoring Family History (Updated 12/25/19 @ 17:20 by VELMA Miller) Father Prostate cancer Mother Atrial fibrillation Family/Other Rheumatoid arthritis Social History Smoking Status: Former smoker alcohol intake: current (2 drinks nightly) substance use type: does not use Smoking Status: Former smoker alcohol intake frequency: 3 or more drinks per day Substance Use Type: does not use Exam Initial Vital Signs Initial Vital Signs: Vital Signs Temperature 98 F 11/04/20 19:20 Pulse Rate 80 11/04/20 19:20 Respiratory Rate 18 11/04/20 19:20 Blood Pressure 177/87 H 11/04/20 19:20 Pulse Oximetry 98 11/04/20 19:20 Const General: cooperative and healthy appearing HENMT Head: normal to inspection and normocephalic Eyes General: appearance normal, both eyes and all related structures Chest Chest: normal inspection of the chest and tenderness (Left side) Resp Effort & Inspection: not labored Auscultation: clear to auscultation bilaterally Cardio Rate: regular rate Rhythm: regular rhythm GI Inspection: normal to inspection Skin General: no rashes or lesions noted Neuro General: patient alert, patient awake and patient oriented x3 Extrem General: normal to inspection and capillary refill normal Psych Appearance: grossly normal and well kempt Course Orders Ordered: ED Orders 11/04/20 19:38 XR chest 2V Stat EKG-12 Lead Stat Discontinued Medications Hydrocodone Bitart/Acetaminophen (Hydrocodone/Acet 5/325 Tablet) 1 tab PO NOW ONE Stop: 11/04/20 20:30 Last Admin: 11/04/20 20:46 Dose: 1 tab Documented by: RANDALL Hydrocodone Bitart/Acetaminophen (Hydrocodone/Acet 5/325 Prepack) 1 bottle MISC SEEINSTR ONE Stop: 11/04/20 20:30 Last Admin: 11/04/20 20:46 Dose: 1 bottle Documented by: RANDALL Ketorolac Tromethamine (Ketorolac 30 Mg/Ml Vial) 30 mg IM NOW ONE Stop: 11/04/20 20:30 Last Admin: 11/04/20 20:46 Dose: 30 mg Documented by: RANDALL Vital Signs Vital signs: Vital Signs - 8 hr 11/04/20 20:44 Pulse Rate 82 Respiratory Rate 16 Blood Pressure 110/56 L Pulse Oximetry 95 MDM - Chest Pain Imaging Data Chest x-ray: Radiologist's Impression: [address] [id number] ReportSigned Patient: Jovanni Childs RMR#: [id number]: 1965Acct:[id number]/Sex: 54 / MDate of Service: 11/04/20Loc: EDAccession Number: [id number] Procedure: XR chest 2V Ordering Provider: Indra Restrepo D.O. PROCEDURE: XR CHEST 2V INDICATIONS: Left-sided chest discomfort TECHNIQUE: 2 views of the chest were acquired. COMPARISON: [facility], , XR CHEST 1V, 06/26/2020, 20:10. FINDINGS: Surgical changes and devices: None. Lungs and pleura: Scattered subsegmental scarring and/or atelectasis. No acute consolidation. No pleural effusions or pneumothorax. Mediastinum: Mediastinal contours are normal. Heart size is normal. Bones and chest wall: No suspicious bony abnormalities. Soft tissues appear unremarkable. IMPRESSION: No acute disease. Dictated by: Bulmaro Marie M.D. on 11/04/2020 at 20:02 Approved by: Bulmaro Marie M.D. on 11/04/2020 at 20:03 ECG Data Attestation: I personally reviewed and interpreted this ECG as follows: Interpretation: Sinus rhythm Ventricular rate 81 Normal axis Normal QRS Normal IN interval No ST T wave changes MDM Narrative Medical decision making narrative: Chest x-ray and EKG are unremarkable. He has no skin changes over his left anterior chest that would be concerning for zoster. Patient's symptoms today are clearly musculoskeletal in origin. Can reproduce the discomfort by touching the left side of his chest and also by moving his left arm. I suspect this is musculoskeletal. Will try to treat the symptoms. I did discuss this with the patient. We did discuss strict return precautions and follow-up instructions. He expressed understanding and agreement. Discharge Plan Departure Patient Disposition: Home Clinical Impression: Acute chest wall pain Instructions: DI for Atypical Chest Pain Activity Restrictions/Additional Instructions: I do recommend you do as much stretching is you can tolerate. Contact your primary doctor for follow-up. You can continue with anti-inflammatories such as Motrin or Naprosyn. If you develop a rash over the area please return to the emergency department. Prescriptions: No Action levothyroxine [Synthroid] 75 mcg Tablet 75 mcg PO DAILY RF: 0 escitalopram oxalate 20 mg Tablet 20 mg PO DAILY RF: 0 rosuvastatin 5 mg Tablet 5 mg PO QAM RF: 0 trazodone 50 mg tablet 50 mg PO BEDTIME PRN (Reason: Insomnia) RF: 0 lisinopril 20 mg tablet 20 mg PO QAM RF: 0 fenofibrate micronized 134 mg capsule 134 mg PO DAILY RF: 0 lansoprazole 15 mg capsule,delayed release(DR/EC) 15 mg PO QAM RF: 0 amlodipine 10 mg tablet 10 mg PO DAILY RF: 0 Referrals: Lakeisha Macias [Primary Care Provider] -
[2020-11-04 20:44] VITALS: BP 110/56; PULSE 82; RESP 16; O2SAT 95
[2020-11-04] MEDS: KETOROLAC 30 MG/ML VIAL IM (20:46)
[2020-11-04] MEDS: HYDROCODONE/ACET 5/325 PREPACK 1 BOTTLE MISC (20:46)
[2020-11-04] MEDS: HYDROCODONE/ACET 5/325 TABLET 1 TAB PO (20:46)
== END 2020-11-04 20:44 | disposition home or self-care (01) ==
PROVIDERS: Emergency Provider Emergency Medicine; PCP Family Medicine
DX: R07.89 Other chest pain (principal)
CPT/HCPCS: 71046; 93005; 96372; 99283; J1885

== ENCOUNTER 2020-11-25 13:57 | Emergency (ER) | payer OTHER, SELFPAY ==
[2020-11-25 14:16] VITALS: BP 152/88; PULSE 73; RESP 15; TEMP 36.7; O2SAT 99; BMI 35.4
--- NOTE | 2020-11-25 14:59 | PC.NURSE ---
This RN was called out to the waiting room because the pt is wishing to leave. Pt states that he doesn't believe his lac is cause to been seen in the ER and does not want to wait any longer. Pt is unsure when his last tetanus was and inquired who can provide a tetanus vacc. I informed him that we do here in the ER, any WIC, PCP, or many pharmacies do. The importance of getting a tetanus was stressed and repeated by the pt. Pt educated on the s/s of infection and to return to the ER or his PCP at the first signs of infection. Pt agreed and understood these instructions. Registration and propellant charge zone assembler informed of pt's desire to leave.
== END 2020-11-25 15:04 | disposition left against medical advice (07) ==
PROVIDERS: Emergency Provider Emergency Medicine
CPT/HCPCS: 99281

== ENCOUNTER → 2021-08-26 08:42 | Outpatient (CLI) | payer OTHER, SELFPAY ==
[2021-08-26 10:00] LABS: BUN Creatinine Ratio 17.2 (6-22); Blood Urea Nitrogen 17 mg/dL (9-20); Carbon Dioxide 27 mmol/L (22-32); Chloride 102 mmol/L (98-107); Estimated Glomerular Filt Rate > 60 mL/min (>60); Glucose 98 mg/dL (70-100); HEMOLYSIS < 15 (0-50); Potassium 4.3 mmol/L (3.4-5.1); Sodium 140 mmol/L (137-145)
[2021-08-26 10:19] LABS: Free T4, Direct Thyroxine 1.06 ng/dL (0.78-2.19)
[2021-08-26 10:32] LABS: Thyroid Stimulating Hormone 4.58 uIU/mL (0.47-4.68)
== END ==
PROVIDERS: PCP Internal Medicine; Referring Provider Internal Medicine; Visit Provider Internal Medicine
DX: E03.9 Hypothyroidism, unspecified (principal); I10 Essential (primary) hypertension
CPT/HCPCS: 36415; 80048; 84439; 84443

== ENCOUNTER → 2021-09-29 08:55 | Outpatient (CLI) | payer OTHER, SELFPAY ==
[2021-09-29 10:40] LABS: COVID19 -Nasal RAPID Negative (Negative)
== END ==
PROVIDERS: PCP Internal Medicine; Visit Provider Surgery
DX: Z01.812 Encounter for preprocedural laboratory examination (principal); Z20.822 Contact with and (suspected) exposure to COVID-19
CPT/HCPCS: 87635; C9803

== ENCOUNTER 2021-09-30 08:37 | Day surgery (SDC) | payer OTHER, SELFPAY ==
[2021-09-30 09:06] VITALS: BP 158/87; PULSE 69; RESP 16; TEMP 36.7; O2SAT 99; BMI 37.6
[2021-09-30] MEDS: LACTATED RINGERS 1,000 ML 42 ML IV (10:10)
--- NOTE | 2021-09-30 10:13 | PM.HP.1 ---
History of Present Illness History of Present Illness Date Patient Seen: 09/30/21 Time Patient Seen: 10:13 Chief complaint: SDC Narrative: Jovanni is a 55-year-old man who is here for colonoscopy. His dad was diagnosed with colon cancer in his 40s. He has had colonoscopies in the past and he believes his last 1 was in 2013 although record indicates that it may have been 2017. He believes no polyps were removed. Patient History Medical History (Updated 09/30/21 @ 10:14 by Beto Wilkerson MD) Allergic rhinitis Anxiety Depression Fatigue (~01/2019) GERD with esophagitis (~1999) Hearing loss (~2004) Hyperlipidemia Hypertension (~2004) Hypertriglyceridemia Hypothyroidism (acquired) (~2015) Insomnia QU[place]NA (nonalcoholic steatohepatitis) Nocturnal hypoxemia (~01/2019) Obesity (BMI 30-39.9) Obstructive sleep apnea (~01/2019) Snoring Thyroid nodule Tinnitus (~1994) Surgical History (Updated 04/19/21 @ 20:01 by Katy Ardon) Anesthesia History of colonoscopy (~2016) History of elbow surgery (~05/2006) History of knee surgery (~2015) Family & Social History Family History (Updated 04/19/21 @ 20:04 by Katy Ardon) Father Prostate cancer Colon cancer Hypertension Mother Atrial fibrillation Cancer History of heart disease Hyperlipidemia Hypertension Family/Other Rheumatoid arthritis Brother Hypertension Hyperlipidemia Sister Hypertension Rheumatoid arthritis Social History: household members spouse Tobacco & Substance use: Smoking Status Never smoker alcohol intake current alcohol intake frequency a few times a week Substance Use Type does not use Meds Home Medications and Allergies Home Medications Medication Instructions Recorded Confirmed Type aspirin 81 mg tablet,delayed 81 mg PO DAILY 04/20/21 09/30/21 History release (Adult Aspirin Regimen) melatonin 10 mg capsule 10 mg PO BEDTIME 04/20/21 09/30/21 History shtcoenn-bfi-rgmof acid 300 1 tab PO DAILY 04/20/21 09/30/21 History mcg-lycopene 600 mcg-lutein 300 mcg tablet (Centrum Silver Ultra Men's) zinc 50 mg tablet 50 mg PO DAILY 04/20/21 09/30/21 History amlodipine 10 mg tablet 10 mg PO DAILY #90 tab 06/01/21 09/30/21 Rx bupropion HCl 300 mg 24 hr tablet, 300 mg PO DAILY #90 tab 06/01/21 09/30/21 Rx extended release fenofibrate micronized 134 mg 134 mg PO DAILY #90 cap 06/01/21 09/30/21 Rx capsule lisinopril 20 mg tablet 20 mg PO QAM #90 tab 06/01/21 09/30/21 Rx rosuvastatin 5 mg tablet 5 mg PO QAM #90 tab 06/01/21 09/30/21 Rx alprazolam 0.5 mg tablet 0.5 mg PO TID PRN #60 tab 08/31/21 09/30/21 Rx citalopram 20 mg tablet 20 mg PO DAILY #90 tab 08/31/21 09/30/21 Rx omeprazole 20 mg capsule,delayed 20 mg PO DAILY #90 cap 09/02/21 09/30/21 Rx release sodium sul 1.479 gram-potas ch See Rx Instructions PO PER PKG DIR 09/13/21 Rx 0.188 gram-magnes sul 0.225 gram #24 tab tablet (Sutab) Allergies Allergy/AdvReac Type Severity Reaction Status Date / Time No Known Drug Allergies Allergy Verified 08/31/21 10:57 Exam Vital Signs (past 8 hours): - 09/30/21 09:06 Temperature 98.1 F Pulse Rate 69 Respiratory Rate 16 Blood Pressure 158/87 H Pulse Oximetry 99 Oxygen Delivery Method Room Air Const General: No acute distress Resp Effort & Inspection: normal respiratory effort Assessment & Plan Assessment and plan (1) Family history of colon cancer: Status: Acute Plan 55-year-old man with a family history of colon cancer. We reviewed the risks and benefits of colonoscopy and he would like to proceed COVID-19 COVID-19 status: Negative Result date/Date tested (Pos, Neg/Pending): 09/29/21 Time Spent With Patient Critical Care time: I spent a total of [] minutes of critical care time on this patient's care today; this time is exclusive of procedural time.
[2021-09-30] MEDS: fentaNYL 250 MCG/5 ML INJ 150 MCG IV (10:32)
[2021-09-30] MEDS: MIDAZOLAM 5 MG/5 ML VIAL 7 MG IV (10:32)
--- NOTE | 2021-09-30 10:41 | P.OP.COLON_ITS ---
Operative Date/Time/Diagnoses Date of procedure: 09/30/21 Time of procedure: 10:41 Pre-op diagnosis: Family history of colon cancer Post-op diagnosis: same Procedure & Clinicians Study performed: Colonoscopy Same procedure as scheduled: Yes Procedure Notes Procedure in detail: Surgeon: Beto Wilkerson MD Procedure: The patient was brought to the endoscopy suite, placed in left lateral decubitus position. The patient was connected to monitoring devices. A time-out was performed. Sedation was administered. Once the patient was adequately sedated, a digital rectal exam was performed and was normal. The scope was then inserted and advanced to the cecum where the appendiceal orifice was identified and photographed. The scope was then slowly withdrawn over greater than 6 minutes. Mucosa was thoroughly inspected. There were a few small diverticula in the sigmoid colon. The scope was retroflexed in the re ctum. No abnormalities were noted there. The scope was straightened and removed. The patient was awakened and brought to recovery. Versed: 5 mg Fentanyl: 150 mcg EBL: 0 Findings: Scattered diverticula in the sigmoid colon. Scope withdrawal time: 11 Sedation minutes: 22 Post-procedure Recommendations: Colonoscopy in 5 years Disposition: PACU
[2021-09-30 10:45] VITALS: BP 160/98; PULSE 72; RESP 16; TEMP 37.2; O2SAT 95
[2021-09-30 10:50] VITALS: BP 146/92; PULSE 80; RESP 16; O2SAT 98
[2021-09-30 11:05] VITALS: BP 164/90; PULSE 88; RESP 16; TEMP 36.4; O2SAT 98
== END 2021-09-30 11:23 | disposition home or self-care (01) ==
PROVIDERS: PCP Internal Medicine; Referring Provider Surgery; Visit Provider Surgery
PROC: 0DJD8ZZ Inspection of Lower Intestinal Tract, Via Natural or Artificial Opening Endoscopic (ICD-10-PCS; CPT 45378; principal; 2021-09-30 09:15)
DX: Z12.11 Encounter for screening for malignant neoplasm of colon (principal); Z80.0 Family history of malignant neoplasm of digestive organs; K57.30 Diverticulosis of large intestine without perforation or abscess without bleeding
CPT/HCPCS: 45378; 99152; J2250; J3010

== ENCOUNTER → 2022-04-12 09:58 | Outpatient (CLI) | payer OTHER, SELFPAY ==
[2022-04-12 10:37] LABS: Add Manual Diff / Slide Review NO; Basophils Absolute Auto 100 /uL (0-100); Basophils Percent Auto 0.9 % (0-2); Eosinophils Absolute Auto 100 /uL (0-450); Eosinophils Percent Auto 1.3 % (2-4); Hematocrit 40.1 % (41-53); Hemoglobin 13.9 g/dL (13.5-17.5); Lymphocytes Absolute Auto 1200 /uL (1100-4500); Lymphocytes Percent Auto 19.7 % (25-40); Mean Corpuscular HGB Conc 34.6 % (30-36); Mean Corpuscular Hemoglobin 30.4 PG (26-34); Mean Corpuscular Volume 87.9 fL (80-100); Monocytes Absolute Auto 400 /uL (0-900); Monocytes Percent Auto 7.2 % (3-14); Neutrophils Absolute Auto 4200 /uL (1500-7000); Neutrophils Percent Auto 70.9 % (50-75); Platelet Count 271 X10^3/uL (150-400); Red Blood Cell Count 4.56 X10^6/uL (4.5-5.9); Red Cell Distribution Width 13.4 % (11.6-14.8); White Blood Cell Count 5.9 X10^3/uL (4.5-11.0)
[2022-04-12 11:10] LABS: Alanine Aminotransferase 29 IU/L (<50); Albumin 4.6 g/dL (3.5-5.0); Albumin Globulin Ratio 1.5 (1.0-2.8); Alkaline Phosphatase 49 U/L (38-126); Aspartate Aminotransferase 24 IU/L (17-59); Bilirubin Total 0.4 mg/dL (0.2-1.3); Blood Urea Nitrogen 14 mg/dL (9-20); Calcium 9.5 mg/dL (8.4-10.2); Carbon Dioxide 27 mmol/L (22-32); Chloride 102 mmol/L (98-107); Estimated Glomerular Filt Rate > 60 mL/min (>60); Globulin 3.1 g/dL (1.7-4.1); Glucose 155 mg/dL (70-100); HEMOLYSIS < 15 (0-50); Magnesium 1.9 mg/dL (1.6-2.3); Sodium 139 mmol/L (137-145); Total Protein 7.7 g/dL (6.3-8.2)
[2022-04-12 11:23] LABS: Free T4, Direct Thyroxine 1.07 ng/dL (0.78-2.19)
[2022-04-12 11:37] LABS: Thyroid Stimulating Hormone 2.54 uIU/mL (0.47-4.68)
== END ==
PROVIDERS: PCP Internal Medicine; Referring Provider Internal Medicine; Visit Provider Internal Medicine
DX: E03.9 Hypothyroidism, unspecified (principal); I10 Essential (primary) hypertension; I49.9 Cardiac arrhythmia, unspecified
CPT/HCPCS: 36415; 80053; 83735; 84439; 84443; 85025

== ENCOUNTER → 2022-04-28 09:39 | Outpatient (CLI) | payer OTHER, SELFPAY ==
--- NOTE | 2022-05-11 07:59 | PM.CARDMON.1 ---
Goods Layer Report Referral & Results Date Patient Seen: 04/28/22 Requesting provider: Jorge Alberto Juarez Indication: Cardiac arrhythmia Duration of monitoring (days): 8 Diary information: There were 2 patient triggered events and 2 patient diary entries Patient triggered events were variably associated with sinus rhythm and PVCs Patient diary events were associated with sinus rhythm only Data: Minimum heart rate identified was 40 beats per minute at 02:02 on 05/04/2022 Maximum sinus heart rate was 132 beats per minute at 17:30 on 04/30/2022. 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
== END ==
PROVIDERS: PCP Internal Medicine; Referring Provider Internal Medicine; Visit Provider Internal Medicine
DX: I49.9 Cardiac arrhythmia, unspecified (principal)
CPT/HCPCS: 93242; 93248

== ENCOUNTER → 2022-08-03 06:54 | Outpatient (CLI) | payer OTHER, SELFPAY ==
[2022-08-03 08:42] LABS: Cholesterol 158 mg/dL (140-199); HDL Cholesterol 37 mg/dL (40-60); LDL Cholesterol Calculated 82 mg/dL (<100); Triglycerides 195 mg/dL (35-150)
[2022-08-03 08:54] LABS: LDL Cholesterol Direct 89 mg/dL (<100)
== END ==
PROVIDERS: PCP Internal Medicine; Referring Provider Internal Medicine; Visit Provider Internal Medicine
DX: E78.1 Pure hyperglyceridemia (principal); E78.2 Mixed hyperlipidemia; F41.9 Anxiety disorder, unspecified; I10 Essential (primary) hypertension
CPT/HCPCS: 36415; 80061; 83721

== ENCOUNTER → 2022-08-08 10:01 | Outpatient (CLI) | payer OTHER, SELFPAY ==
--- NOTE | 2022-08-08 10:03 | DI.RAD.S_ITS ---
PROCEDURE: XR CHEST 2V INDICATIONS: chest pain TECHNIQUE: 2 views of the chest were acquired. COMPARISON: [facility], CR, XR CHEST 2V, 11/04/2020, 19:35. [facility], CR, XR CHEST 1V, 06/26/2020, 20:10. FINDINGS: Surgical changes and devices: None. Lungs and pleura: Lungs are clear. No pleural effusions or pneumothorax. Mediastinum: Mediastinal contours are normal. Heart size is normal. Bones and chest wall: No suspicious bony abnormalities. Soft tissues appear unremarkable. IMPRESSION: No acute radiographic abnormality. Dictated by: Oumar Muir M.D. on 08/08/2022 at 10:54 Approved by: Oumar Muir M.D. on 08/08/2022 at 10:54
== END ==
PROVIDERS: PCP Internal Medicine; Referring Provider Internal Medicine; Visit Provider Internal Medicine
DX: R07.9 Chest pain, unspecified (principal)
CPT/HCPCS: 71046

== ENCOUNTER → 2022-09-23 14:47 | Outpatient (CLI) | payer OTHER, SELFPAY ==
--- NOTE | 2022-09-28 10:57 | DI.NM.S_ITS ---
DATE OF SERVICE: PROCEDURE: Exercise stress test. INDICATIONS: Chest pain, underlying hypertension. CARDIAC STRESS: The patient underwent exercise stress test under the supervision of an attending staff. The patient walked on Jose Ramon protocol for 9 minutes and 49 seconds, achieved maximum heart rate of 145, which was 88% of target heart rate. Resting blood pressure 140/82 mmHg. Peak blood pressure 180/88 mmHg. The patient achieved 10.1 METS of workload and HOWARD -4%. Baseline rhythm was sinus. During stress, no convincing ischemic changes seen. No significant arrhythmias. Resting, the patient had occasional monomorphic PVCs. However, during stress, no PVCs were seen. The patient felt fatigue and some shortness of breath. No chest pain. CONCLUSION: Exercise stress test is negative for inducible ischemia. Walked on Jose Ramon protocol for 9 minutes and 49 seconds. Good exercise tolerance. Achieved 10.1 metabolic equivalents of workload. Normal hemodynamic response. No ischemic electrocardiographic changes. Baseline occasional monomorphic premature ventricular contractions which got suppressed during exercise. Overall, low-risk exercise stress test. NazJovanni - NANDA/evan/zara doc#: [id number]/job#: [id number] dd: 09/27/2022 16:41:00 dt: 09/27/2022 22:09:00 DICTATING /COPIES TO: Saba Conroy MD COPIES MNE: IVAN;
== END ==
PROVIDERS: PCP Internal Medicine; Referring Provider Internal Medicine; Visit Provider Internal Medicine
DX: R07.9 Chest pain, unspecified (principal); E78.5 Hyperlipidemia, unspecified; I10 Essential (primary) hypertension
CPT/HCPCS: 93017

== ENCOUNTER 2023-02-13 07:11 | Emergency (ER) | payer OTHER, SELFPAY ==
[2023-02-13] VITALS (8 sets, daily range): BP systolic 124–142; BP diastolic 61–77; PULSE 64–81; RESP 18; TEMP 36.6; O2SAT 95–98; BMI 37.6
--- NOTE | 2023-02-13 07:27 | ED.ABDPAIN ---
HPI - Abdominal Pain General Chief Complaint: Urogenital-Male Stated Complaint: LT mid torso hurting T-3/dark urine Time Seen by Provider: 02/13/23 07:18 Source: patient Mode of arrival: Ambulatory Limitations: no limitations History of Present Illness HPI narrative: This is a 57-year-old male with history of hypertension, dyslipidemia, GERD with complaint of left flank pain that started 3 days ago. Patient states it came on abruptly. No inciting factors. It seems to be very localized to left flank does not radiate to the front. He states most movements do not worsened it but sitting up from bed this morning did. He states it has been gradually progressive over the last several days. Has never resolved totally. Denies any fevers or chills. No chest pain or shortness of breath, no nausea or vomiting, no syncope or lightheadedness. States normal bowel movements with no diarrhea constipation, no black or bloody stools. No dysuria, urgency or frequency but noted his urine has been a little bit darker. Patient has not had similar symptoms in the past. No known rashes. Patient states has not had similar symptoms in the past. He states he does sometimes get back pain but states this is much different than his typical. He tried Motrin p.m. last night for sleep but was not helpful. Patient states he takes bupropion, rosuvastatin, lisinopril, amlodipine and Prevacid daily for medication. No prior surgeries. Denies any drug allergies. Patient states no tobacco, occasional alcohol, no recreational drugs. No known drug allergies. Dr. Juarez is his primary care. Related Data Home Medications Medication Instructions Recorded Confirmed aspirin 81 mg tablet,delayed 81 mg PO DAILY 04/20/21 10/04/22 release (Adult Aspirin Regimen) melatonin 10 mg capsule 10 mg PO BEDTIME 04/20/21 10/04/22 ilrbserf-ry-rsjha 300 mcg-K 60 1 tab PO DAILY 04/20/21 10/04/22 mcg-lycop 600 mcg-lutein 300 mcg tablet (Centrum Silver Ultra Men's) zinc 50 mg tablet 50 mg PO DAILY 04/20/21 10/04/22 Previous Rx's Medication Instructions Recorded clobetasol 0.05 % topical cream 1 applic topical BID 2 weeks #45 02/10/22 grams amlodipine 10 mg tablet 10 mg PO DAILY #90 tabs 07/26/22 bupropion HCl 300 mg 24 hr tablet, 300 mg PO DAILY #90 tabs 07/26/22 extended release fenofibrate micronized 134 mg 134 mg PO DAILY #90 caps 07/26/22 capsule lisinopril 20 mg tablet 20 mg PO QAM #90 tabs 07/26/22 rosuvastatin 5 mg tablet 5 mg PO QAM #90 tabs 07/26/22 alprazolam 0.5 mg tablet 0.5 mg PO TID PRN anxiety #60 tabs 01/23/23 amoxicillin 875 mg-potassium 1 tab PO BID #20 tabs 02/13/23 clavulanate 125 mg tablet hydrocodone 5 mg-acetaminophen 325 1 tab PO Q6H PRN pain #7 tabs 02/13/23 mg tablet Allergies Allergy/AdvReac Type Severity Reaction Status Date / Time No Known Drug Allergies Allergy Verified 10/04/22 10:04 Review of Systems Review of Systems ROS Unobtainable: All systems reviewed & are unremarkable except as noted in HPI and below Patient History Medical History Psoriasis, guttate Sleep apnea in adult Thyroid nodule Tinnitus (~1994) Hearing loss (~2004) Allergic rhinitis GERD with esophagitis (~1999) [place] (nonalcoholic steatohepatitis) Hyperlipidemia Hypertriglyceridemia Hypothyroidism (acquired) (~2015) Hypertension (~2004) Depression Anxiety Obesity (BMI 30-39.9) Fatigue (~01/2019) Nocturnal hypoxemia (~01/2019) Snoring Insomnia Surgical History Anesthesia History of knee surgery (~2015) History of colonoscopy (~2016) History of elbow surgery (~05/2006) Family History Father Prostate cancer Colon cancer Hypertension Mother Atrial fibrillation Cancer History of heart disease Hyperlipidemia Hypertension Family/Other Rheumatoid arthritis Brother Hypertension Hyperlipidemia Sister Hypertension Rheumatoid arthritis Social History household members: spouse Smoking Status: Never smoker alcohol intake: current substance use type: does not use Smoking Status: Never smoker alcohol intake frequency: a few times a week Substance Use Type: does not use Exam Narrative Exam Narrative: GENERAL: Alert and oriented x three, male in mild distress. HEENT: Head normocephalic, atraumatic, EOMI, pupils reactive, face symmetric, moist mucous membranes NECK: Supple, full range of motion CARDIOVASCULAR: Regular rate and rhythm without murmurs, rubs or gallops. RESPIRATORY: Breath sounds equal bilaterally, no wheezes rales or rhonchi. ABDOMEN: Soft, nontender. Normoactive bowel sounds all 4 quadrants. No guarding or rebound, rigidity, no mass : Positive for left CVA tenderness, no right CVA tenderness. BACK: No cervical, thoracic or lumbar vertebral point tenderness. Patient has normal range of motion. Patient's gait is normal. Muscle strength is 5/5 in lower extremities, 2+ pulses bilateral lower extremities. No rash, erythema or other skin changes. EXTREMITIES: Normal range of motion, no clubbing or edema. Neurovascularly intact NEUROLOGICAL: Cranial nerves II through XII grossly intact. Moving all extremities SKIN: Warm, dry, no petechiae, no rashes or lesions. Initial Vital Signs Initial Vital Signs: Vital Signs Pulse Rate 67 02/13/23 07:17 Blood Pressure 140/77 02/13/23 07:17 Pulse Oximetry 97 02/13/23 07:17 Course Orders Ordered: Discontinued Medications Sodium Chloride (Normal Saline 0.9%) 1,000 mls @ 1,000 mls/hr IV BOLUS ONE Stop: 02/13/23 08:36 Last Infusion: 02/13/23 09:12 Dose: Infused Documented By: Admin: 02/13/23 07:59 Dose: 1,000 mls/hr Documented By: MICHAEL Ketorolac Tromethamine (Ketorolac 30 Mg/Ml Vial) 15 mg IV NOW ONE Stop: 02/13/23 07:38 Last Admin: 02/13/23 07:59 Dose: 15 mg Documented By: RB Vital Signs Vital signs: Vital Signs - 8 hr 02/13/23 07:17 02/13/23 07:17 02/13/23 07:18 Temperature 97.8 F Pulse Rate 67 70 Respiratory Rate 18 Blood Pressure 140/77 140/77 Pulse Oximetry 97 97 Oxygen Delivery Method Room Air 02/13/23 07:30 02/13/23 07:30 02/13/23 07:47 Temperature Pulse Rate 64 Respiratory Rate Blood Pressure 132/73 142/69 H Pulse Oximetry 95 Oxygen Delivery Method 02/13/23 07:47 02/13/23 08:00 02/13/23 08:00 Temperature Pulse Rate 81 64 Respiratory Rate Blood Pressure 124/61 Pulse Oximetry 97 96 Oxygen Delivery Method MDM - Abdominal Pain Lab Data 02/13/23 07:20 02/13/23 07:20 Labs: Lab Results 02/13/23 Range/Units 07:20 WBC 5.8 (4.5-11.0) X10^3/uL RBC 4.69 (4.5-5.9) X10^6/uL Hgb 14.2 (13.5-17.5) g/dL Hct 41.1 (41-53) % MCV 87.5 (80-100) fL MCH 30.3 (26-34) PG MCHC 34.6 (30-36) % RDW 13.4 (11.6-14.8) % Plt Count 252 (150-400) X10^3/uL Neut % (Auto) 61.4 (50-75) % Lymph % (Auto) 25.8 (25-40) % [place] % (Auto) 9.3 (3-14) % Eos % (Auto) 2.7 (2-4) % Baso % (Auto) 0.8 (0-2) % Neut # (Auto) 3500 (6139-5162) /uL Lymph # (Auto) 1500 (1594-2431) /uL [place] # (Auto) 500 (0-900) /uL Eos # (Auto) 200 (0-450) /uL Baso # (Auto) 0 (0-100) /uL Sodium 137 (137-145) mmol/L Potassium 4.5 (3.4-5.1) mmol/L Chloride 103 (98-107) mmol/L Carbon Dioxide 26 (22-32) mmol/L BUN 19 (9-20) mg/dL Creatinine 0.90 (0.66-1.25) mg/dL Estimated GFR > 60 (>60) mL/min BUN/Creatinine Ratio 21.1 (6-22) Glucose 113 H (70-100) mg/dL Calcium 9.5 (8.4-10.2) mg/dL Total Bilirubin 0.5 (0.2-1.3) mg/dL AST 34 (17-59) IU/L ALT 22 (<50) IU/L Alkaline Phosphatase 41 (38-126) U/L Total Protein 7.5 (6.3-8.2) g/dL Albumin 4.5 (3.5-5.0) g/dL Globulin 3.0 (1.7-4.1) g/dL Albumin/Globulin Ratio 1.5 (1.0-2.8) Lipase 71 (23-300) U/L Point of care testing: Urine Dip Bedside Urine Glucose Negative Bedside Urine Bilirubin - Negative Bedside Urine Ketone - Negative Urine Specific [place] 1.010 Bedside Urine Occult Blood - Negative Bedside Urine pH 6.0 Bedside Urine Protein - Negative Bedside Urine Urobilinogen - Negative Bedside Urine Nitrite - Negative Bedside Urine Leukocytes - Negative Esterase Imaging Data CT scan - abdomen/pelvis: Radiologist's Impression: [address] [address] [address] Scan Report Signed Patient: Jovanni Childs MR#: [id number] : 1965 Acct:[id number] Age/Sex: 57 / M Date of Service: 02/13/23 Loc: ED Accession Number: [id number] Procedure: CT kidney ureter bladder (KUB) Ordering Provider: Casandra Gilliam D.O. PROCEDURE: CT KIDNEY URETER BLADDER (KUB) INDICATIONS: left flank pain, left cva tender, sudden onset x 3 days TECHNIQUE: Axial sections were acquired from the lung bases to the pubic symphysis. Coronal and sagittal reformats were performed. For radiation dose reduction, the following was used: automated exposure control, adjustment of mA and/or kV according to patient size. COMPARISON: None. FINDINGS: Image quality: Excellent. Lung bases: Unremarkable. Heart: No significant findings. URINARY: Right Kidney: No stones or hydronephrosis. Right Ureter: No hydroureter. Left Kidney: No stones or hydronephrosis. Left Ureter: No hydroureter. Bladder: Normal wall thickness. No stones. ABDOMEN: Liver: Unremarkable. Gallbladder: Unremarkable. Biliary ducts: Unremarkable. Pancreas: Unremarkable. Spleen: Unremarkable. Adrenal Glands: Unremarkable. Stomach and Bowel: Mild wall thickening of the sigmoid colon, without pericolonic fat stranding. Diverticula are present. Appendix is unremarkable. Peritoneum: No abnormal intraperitoneal fluid. No free air. Ventral Wall: No hernia. Abdominal Nodes: No enlarged retroperitoneal or mesenteric lymph nodes. Vessels: Aorta and inferior vena cava are normal in size. PELVIS: Pelvic Organs: Unremarkable. Pelvic Nodes: Unremarkable. Miscellaneous: No inguinal hernias are seen. Bones: Unremarkable. IMPRESSION: Mild wall thickening of the sigmoid colon, without pericolonic fat stranding. In the presence of colonic diverticula, findings could represent early/mild diverticulitis, chronic diverticulitis or colitis. No nephrolithiasis or hydronephrosis. Dictated by: Chandra Maldonado M.D. on 02/13/2023 at 8:19 Approved by: Chandra Maldonado M.D. on 02/13/2023 at 8:28 MDM Narrative Medical decision making narrative: 57-year-old male with symptoms somewhat consistent with kidney stone has not had priors. Patient's notes his urine was little bit darker. He is little tender over the left CVA, no other back tenderness nonetheless significant pain with movement no rash or skin changes on the torso or back. Labs including CBC, CMP lipase obtained, urine sample, dose of Toradol for pain medication and CT KUB were obtained. Urine is negative for infection, CBC is appropriate, CMP including lipase is negative glucose is 113. CT KUB shows no stones but does show mild wall thickening of the sigmoid colon without stranding diverticula present, appendix is unremarkable, findings could represent early/mild diverticulitis. Discussed today's findings with patient he is tender although more in the left quadrant, this is seems less likely source of pain but possible. Discussed starting oral antibiotics with the patient and will start on Augmentin. Patient states agreeable states Toradol has been mildly helpful today. Open to something little bit stronger for pain for home. Discharge Plan Departure Patient Disposition: Home Clinical Impression: Diverticulitis Instructions: DI for Diverticulitis Activity Restrictions/Additional Instructions: Please follow-up for recheck. Your CT imaging shows some mild thickening of the sigmoid colon, this is typically little bit lower in terms of pain but could be an early diverticulitis. You may take Tylenol up to a 1000 mg every 6 hours and/or ibuprofen up to 600 mg every 6 hours as needed for pain. If inadequate for pain you may take [place] 1-2 tablets every 6 hours needed for pain. Do not take Tylenol with this medication as it also has Tylenol in it. This medication can make you sleepy do not drive, perform hazardous activities or make any major decisions while taking it. This medication will make you constipated please take a stool softener once to twice daily such as Colace or Benefiber until stools are soft and regular. Take antibiotics until completed. Prescription sent to [facility] [place]. Please return for fevers, new or worsening abdominal back or flank pain, lightheadedness or passing out, persistent vomiting, black or bloody stools or other new or concerning changes. Prescriptions: New hydrocodone-acetaminophen 5-325 mg tablet 1 tab PO Q6H PRN (Reason: pain) Qty: 7 0RF amoxicillin-pot clavulanate 875-125 mg tablet 1 tab PO BID Qty: 20 0RF No Action clobetasol 0.05 % cream 1 applic topical BID 14 Days Qty: 45 3RF lisinopril 20 mg tablet 20 mg PO QAM Qty: 90 3RF bupropion HCl 300 mg tablet extended release 24 hr 300 mg PO DAILY Qty: 90 3RF fenofibrate micronized 134 mg capsule 134 mg PO DAILY Qty: 90 3RF rosuvastatin 5 mg tablet 5 mg PO QAM Qty: 90 3RF amlodipine 10 mg tablet 10 mg PO DAILY Qty: 90 3RF alprazolam 0.5 mg tablet 0.5 mg PO TID PRN (Reason: anxiety) Qty: 60 1RF aspirin [Adult Aspirin Regimen] 81 mg tablet,delayed release (DR/EC) 81 mg PO DAILY melatonin 10 mg capsule 10 mg PO BEDTIME zinc 50 mg tablet 50 mg PO DAILY Centrum Silver Ultra Men's 300-600-300 mcg tablet 1 tab PO DAILY Referrals: Jorge Alberto Juarez MD [Primary Care Provider] - Stand Alone Forms: Patient Portal/API
--- NOTE | 2023-02-13 07:37 | DI.CT.S_ITS ---
PROCEDURE: CT KIDNEY URETER BLADDER (KUB) INDICATIONS: left flank pain, left cva tender, sudden onset x 3 days TECHNIQUE: Axial sections were acquired from the lung bases to the pubic symphysis. Coronal and sagittal reformats were performed. For radiation dose reduction, the following was used: automated exposure control, adjustment of mA and/or kV according to patient size. COMPARISON: None. FINDINGS: Image quality: Excellent. Lung bases: Unremarkable. Heart: No significant findings. URINARY: Right Kidney: No stones or hydronephrosis. Right Ureter: No hydroureter. Left Kidney: No stones or hydronephrosis. Left Ureter: No hydroureter. Bladder: Normal wall thickness. No stones. ABDOMEN: Liver: Unremarkable. Gallbladder: Unremarkable. Biliary ducts: Unremarkable. Pancreas: Unremarkable. Spleen: Unremarkable. Adrenal Glands: Unremarkable. Stomach and Bowel: Mild wall thickening of the sigmoid colon, without pericolonic fat stranding. Diverticula are present. Appendix is unremarkable. Peritoneum: No abnormal intraperitoneal fluid. No free air. Ventral Wall: No hernia. Abdominal Nodes: No enlarged retroperitoneal or mesenteric lymph nodes. Vessels: Aorta and inferior vena cava are normal in size. PELVIS: Pelvic Organs: Unremarkable. Pelvic Nodes: Unremarkable. Miscellaneous: No inguinal hernias are seen. Bones: Unremarkable. IMPRESSION: Mild wall thickening of the sigmoid colon, without pericolonic fat stranding. In the presence of colonic diverticula, findings could represent early/mild diverticulitis, chronic diverticulitis or colitis. No nephrolithiasis or hydronephrosis. Dictated by: Chandra Maldonado M.D. on 02/13/2023 at 8:19 Approved by: Chandra Maldonado M.D. on 02/13/2023 at 8:28
[2023-02-13 07:54] LABS: Alanine Aminotransferase 22 IU/L (<50); Albumin 4.5 g/dL (3.5-5.0); Albumin Globulin Ratio 1.5 (1.0-2.8); Alkaline Phosphatase 41 U/L (38-126); Aspartate Aminotransferase 34 IU/L (17-59); BUN Creatinine Ratio 21.1 (6-22); Bilirubin Total 0.5 mg/dL (0.2-1.3); Blood Urea Nitrogen 19 mg/dL (9-20); Calcium 9.5 mg/dL (8.4-10.2); Carbon Dioxide 26 mmol/L (22-32); Chloride 103 mmol/L (98-107); Estimated Glomerular Filt Rate > 60 mL/min (>60); Glucose 113 mg/dL (70-100); HEMOLYSIS 44 (0-50); Lipase 71 U/L (23-300); Potassium 4.5 mmol/L (3.4-5.1); Sodium 137 mmol/L (137-145); Total Protein 7.5 g/dL (6.3-8.2)
[2023-02-13 07:55] LABS: Add Manual Diff / Slide Review NO; Basophils Absolute Auto 0 /uL (0-100); Basophils Percent Auto 0.8 % (0-2); Eosinophils Absolute Auto 200 /uL (0-450); Eosinophils Percent Auto 2.7 % (2-4); Hematocrit 41.1 % (41-53); Hemoglobin 14.2 g/dL (13.5-17.5); Lymphocytes Absolute Auto 1500 /uL (1100-4500); Lymphocytes Percent Auto 25.8 % (25-40); Mean Corpuscular HGB Conc 34.6 % (30-36); Mean Corpuscular Hemoglobin 30.3 PG (26-34); Mean Corpuscular Volume 87.5 fL (80-100); Monocytes Absolute Auto 500 /uL (0-900); Monocytes Percent Auto 9.3 % (3-14); Neutrophils Absolute Auto 3500 /uL (1500-7000); Neutrophils Percent Auto 61.4 % (50-75); Platelet Count 252 X10^3/uL (150-400); Red Blood Cell Count 4.69 X10^6/uL (4.5-5.9); Red Cell Distribution Width 13.4 % (11.6-14.8); White Blood Cell Count 5.8 X10^3/uL (4.5-11.0)
[2023-02-13] MEDS: KETOROLAC 30 MG/ML VIAL 15 MG IV (07:59)
[2023-02-13] MEDS: SODIUM CHLORIDE 0.9% 1,000 ML 1000 ML IV (07:59)
== END 2023-02-13 09:21 | disposition home or self-care (01) ==
PROVIDERS: Emergency Provider Emergency Medicine; PCP Internal Medicine
DX: K57.92 Diverticulitis of intestine, part unspecified, without perforation or abscess without bleeding (principal); Z79.899 Other long term (current) drug therapy
CPT/HCPCS: 36415; 74176; 80053; 81003; 83690; 85025; 96361; 96374; 99284; J1885

== ENCOUNTER → 2023-04-04 15:49 | Outpatient (CLI) | payer OTHER, SELFPAY ==
--- NOTE | 2023-04-04 15:51 | DI.MRI.S_ITS ---
PROCEDURE: MR SHOULDER RT WO CON INDICATIONS: Pain in right shoulder TECHNIQUE: Noncontrast oblique coronal T2 fast spin echo with fat saturation, oblique sagittal T1 spin echo and T2 fast spin echo with fat saturation, axial T1 spin echo and T2 fast spin echo with fat saturation through the shoulder. COMPARISON: [facility], MR, MR SHOULDER LT WO CON, 12/15/2017, 17:33. FINDINGS: Image quality: Excellent. Rotator cuff: Low-grade articular surface partial thickness tear involving distal supraspinatus at its insertion on the humeral head is seen extending to musculotendinous junction. Distal infraspinatus tendinosis is also noted. The subscapularis tendon is grossly intact. No full-thickness rotator cuff tendon rupture. Sagittal images demonstrate no significant rotator cuff muscle atrophy. Bones and bursae: Mild to moderate acromioclavicular joint osteoarthritic changes are seen with joint space narrowing, subchondral sclerosis and marginal osteophyte formation depressing the musculotendinous junction of supraspinatus. No fracture or dislocation. The acromion demonstrates conventional anatomy, without an os acromiale. No pathologic subacromial-subdeltoid or subcoracoid bursal fluid is present. Capsule and soft tissues: Signal abnormality and fraying of posterior superior labrum at 11 to 12 o'clock position is seen. Similar signal abnormality and fraying of anterior inferior labrum at 5 to 6 o'clock position is also seen. The long head of the biceps tendon demonstrates normal location and morphology. The rotator interval appears normal, without fibrosis. The coracohumeral ligament is normal in thickness. IMPRESSION: 1. Low-grade articular surface partial-thickness tear involving distal supraspinatus extending to musculotendinous junction. Distal infraspinatus tendinosis. No full-thickness rotator cuff tendon rupture. 2. Fpew-ev-fpxxzdag acromioclavicular joint osteoarthritis. No fracture or dislocation. 3. Suggestion of posterior superior labral tear at 11 to 12 o'clock position and anterior-inferior labral tear at 5 to 6 o'clock position. Dictated by: Bolivar Pulido M.D. on 04/05/2023 at 9:56 Approved by: Bolivar Pulido M.D. on 04/05/2023 at 10:07
== END ==
PROVIDERS: PCP Internal Medicine; Referring Provider Orthopaedic Surgery; Visit Provider Orthopaedic Surgery
DX: M75.111 Incomplete rotator cuff tear or rupture of right shoulder, not specified as traumatic (principal); M19.011 Primary osteoarthritis, right shoulder; M25.511 Pain in right shoulder
CPT/HCPCS: 73221

== ENCOUNTER → 2023-10-05 11:14 | Outpatient (CLI) | payer OTHER, SELFPAY ==
--- NOTE | 2023-10-05 11:15 | DI.RAD.S_ITS ---
PROCEDURE: XR KNEE RT 3V INDICATIONS: right knee pain TECHNIQUE: 3 views of the knee were acquired. COMPARISON: None. FINDINGS: Bones: No fractures or dislocations. No suspicious bony lesions. Mild tricompartmental osteoarthrosis. Soft tissues: No joint effusion. No suspicious soft tissue calcifications. IMPRESSION: No acute bony abnormality or significant effusion. Mild tricompartmental osteoarthrosis. Dictated by: Chris Ni M.D. on 10/05/2023 at 15:18 Approved by: Chris Ni M.D. on 10/05/2023 at 15:19
== END ==
LOC: RAD 11:15
PROVIDERS: PCP Internal Medicine; Referring Provider Internal Medicine; Visit Provider Internal Medicine
DX: M17.11 Unilateral primary osteoarthritis, right knee (principal); M25.561 Pain in right knee
CPT/HCPCS: 73562

== ENCOUNTER 2023-10-09 08:49 | Emergency (ER) | payer OTHER, SELFPAY ==
[2023-10-09 08:55] VITALS: BP 154/78; PULSE 77; RESP 16; TEMP 36.4; O2SAT 98; BMI 39.1
--- NOTE | 2023-10-09 12:02 | DI.CT.S_ITS ---
PROCEDURE: CT LE RT WO CON INDICATIONS: knee pain, fall TECHNIQUE: Noncontrast 1-1.5 mm axial sections acquired from the mid-patella to the proximal tibia, with coronal and sagittal reformats. COMPARISON: None. FINDINGS: Image quality: Excellent. Bones: No acute fracture or dislocation. No significant degenerative change. Soft tissues: Unremarkable IMPRESSION: No acute fracture or dislocation involving the right knee. Dictated by: Wiliam Kennedy M.D. on 10/09/2023 at 13:32 Approved by: Wiliam Kennedy M.D. on 10/09/2023 at 13:33
--- NOTE | 2023-10-09 12:09 | ED.LOWEXIN ---
HPI - Extremity Injury (Lower) <Farrah Robles PA-C - Last Filed: 10/09/23 14:11> General Chief Complaint: Extremity Injury, Lower Stated Complaint: R Knee Pain Time Seen by Provider: 10/09/23 11:14 Source: patient Mode of arrival: Ambulatory History of Present Illness HPI Narrative: 57-year-old male presents to the ED with 1 month of worsening right knee pain. Patient states that his knee pain started spontaneous 1 month ago with no trauma. Last week, patient had a mechanical misstep due to some fluid on the floor, after which his right knee pain worsened. Patient was seen by his PCP Dr. Juarez, x-ray was obtained with no acute findings. Patient was started on meloxicam which he has taken for the last 5 days with no improvement. Patient is also taken ibuprofen 800 mg with no improvement. Patient comes in walking on crutches, unable to bear weight on the right knee. Patient endorses some tingling, denies numbness or weakness. Pain is worsened with full extension of the knee. Related Data Home Medications Medication Instructions Recorded Confirmed aspirin 81 mg tablet,delayed 81 mg PO DAILY 04/20/21 10/05/23 release (Adult Aspirin Regimen) melatonin 10 mg capsule 10 mg PO BEDTIME 04/20/21 10/05/23 acaktxqn-gv-gmotx 300 mcg-K 60 1 tab PO DAILY 04/20/21 10/05/23 mcg-lycop 600 mcg-lutein 300 mcg tablet (Centrum Silver Ultra Men's) Previous Rx's Medication Instructions Recorded trazodone 50 mg tablet 50 mg PO BEDTIME #90 tabs 03/09/23 bupropion HCl 300 mg 24 hr tablet, 300 mg PO DAILY #90 tabs 06/08/23 extended release fenofibrate micronized 134 mg 134 mg PO DAILY #90 caps 06/08/23 capsule lisinopril 20 mg tablet 20 mg PO QAM #90 tabs 06/08/23 alprazolam 0.5 mg tablet 0.5 mg PO TID PRN anxiety #60 tabs 08/23/23 amlodipine 10 mg tablet 10 mg PO DAILY #90 tabs 08/23/23 clobetasol 0.05 % topical cream 1 applic topical BID 2 weeks #45 08/23/23 grams rosuvastatin 5 mg tablet 5 mg PO QAM #90 tabs 08/23/23 meloxicam 15 mg tablet 15 mg PO DAILY #30 tabs 10/05/23 Allergies Allergy/AdvReac Type Severity Reaction Status Date / Time No Known Drug Allergies Allergy Verified 10/09/23 08:59 Review of Systems <Farrah Robles PA-C - Last Filed: 10/09/23 14:11> Constitutional Constitutional: Denies chills, Denies fatigue, Denies fever(s), Denies frequent falls, Denies lethargy and Denies weakness Eyes Eyes: Denies change in vision, Denies eye discharge, Denies irritation and Denies loss of vision ENT Ears, Nose, Mouth, and Throat: Denies change in voice, Denies dizziness, Denies neck pain, Denies sore throat and Denies throat swelling Cardiovascular Cardiovascular: Denies chest pain, Denies irregular heart rhythm, Denies lightheadedness, Denies palpitations, Denies dyspnea, Denies dyspnea on exertion and Denies orthopnea Respiratory Respiratory: Denies cough, Denies dyspnea, Denies dyspnea on exertion and Denies wheezing Gastrointestinal Gastrointestinal: Denies abdominal pain, Denies change in bowel habits, Denies diarrhea, Denies nausea and Denies vomiting Musculoskeletal Musculoskeletal: Denies neck pain and Denies numbness Comments: Right knee pain, tingling Integumentary/Breasts Skin/Breast: Denies pruritus, Denies erythema, Denies rash and Denies wounds Neurologic Neurologic: Denies behavioral changes, Denies confusion, Denies dizziness, Denies frequent falls, Denies loss of vision, Denies numbness and Denies weakness Psychiatric Psychiatric: Denies anxiety, Denies behavioral changes, Denies confusion, Denies depression, Denies homicidal ideation and Denies suicidal ideation Endocrine Endocrine: Denies fatigue, Denies flushing and Denies palpitations Hematologic/Lymphatic Hematologic/Lymphatic: Denies easy bruising Allergic/Immunologic Allergic/Immunologic: Denies urticaria, Denies throat swelling and Denies wheezing Patient History <Farrah Robles PA-C - Last Filed: 10/09/23 14:11> Medical History PVCs (premature ventricular contractions) Morbid obesity Psoriasis, guttate Sleep apnea in adult Thyroid nodule Tinnitus (~1994) Hearing loss (~2004) Allergic rhinitis GERD with esophagitis (~1999) [place] (nonalcoholic steatohepatitis) Hyperlipidemia Hypertriglyceridemia Hypothyroidism (acquired) (~2015) Hypertension (~2004) Depression Anxiety Obesity (BMI 30-39.9) Fatigue (~01/2019) Nocturnal hypoxemia (~01/2019) Snoring Insomnia Surgical History Anesthesia History of knee surgery (~2015) History of colonoscopy (~2016) History of elbow surgery (~05/2006) Family History Father Prostate cancer Colon cancer Hypertension Mother Atrial fibrillation Cancer History of heart disease Hyperlipidemia Hypertension Family/Other Rheumatoid arthritis Brother Hypertension Hyperlipidemia Sister Hypertension Rheumatoid arthritis Social History household members: spouse Smoking Status: Never smoker alcohol intake: current substance use type: does not use Smoking Status: Never smoker alcohol intake frequency: a few times a week Substance Use Type: does not use Exam <Farrah Robles PA-C - Last Filed: 10/09/23 14:11> Narrative Exam Narrative: Const General:?cooperative, healthy appearing and comfortable [facility] Head:?normal to inspection Ears:?hearing grossly normal bilaterally Nose:?external nose normal Face and sinus:?normal facial exam and sinuses nontender Mouth:?oral mucosae normal Throat:?posterior oropharynx normal Eyes General:?appearance normal, both eyes and all related structures Neck Neck:?normal visual inspection and no lymphadenopathy noted Resp Effort & Inspection:?normal respiratory effort Auscultation:?clear to auscultation bilaterally Cardio Rate:?regular rate Rhythm:?regular rhythm Musculoskeletal Tenderness to palpation of the anterior, medial aspect of the right knee. Pain with extension. No swelling, erythema, bruising, deformities noted. Strength and sensation is intact. Patient is unable to bear weight and walk due to pain. Neurovascularly intact. Neuro General:?patient alert, patient awake and patient oriented x3 Initial Vital Signs Initial Vital Signs: Vital Signs Temperature 97.6 F 10/09/23 08:55 Pulse Rate 77 10/09/23 08:55 Respiratory Rate 16 10/09/23 08:55 Blood Pressure 154/78 H 10/09/23 08:55 Pulse Oximetry 98 10/09/23 08:55 Oxygen Delivery Method Room Air 10/09/23 08:55 <Casandra Gilliam DO - Last Filed: 10/10/23 07:37> Initial Vital Signs Initial Vital Signs: Vital Signs Temperature 97.6 F 10/09/23 08:55 Pulse Rate 77 10/09/23 08:55 Respiratory Rate 16 10/09/23 08:55 Blood Pressure 154/78 H 10/09/23 08:55 Pulse Oximetry 98 10/09/23 08:55 Oxygen Delivery Method Room Air 10/09/23 08:55 Course <Farrah Robles PA-C - Last Filed: 10/09/23 14:11> Orders Ordered: Discontinued Medications Ketorolac Tromethamine (Ketorolac 30 Mg/Ml Vial) 30 mg IM NOW ONE Stop: 10/09/23 12:33 Last Admin: 10/09/23 12:38 Dose: 30 mg Documented By: ATILIO Vital Signs Vital signs: Vital Signs - 8 hr 10/09/23 08:55 Temperature 97.6 F Pulse Rate 77 Respiratory Rate 16 Blood Pressure 154/78 H Pulse Oximetry 98 Oxygen Delivery Method Room Air <Casandra Gilliam DO - Last Filed: 10/10/23 07:37> Orders Ordered: Discontinued Medications Ketorolac Tromethamine (Ketorolac 30 Mg/Ml Vial) 30 mg IM NOW ONE Stop: 10/09/23 12:33 Last Admin: 10/09/23 12:38 Dose: 30 mg Documented By: ATILIO Vital Signs Vital signs: Vital Signs - 8 hr 10/09/23 08:55 Temperature 97.6 F Pulse Rate 77 Respiratory Rate 16 Blood Pressure 154/78 H Pulse Oximetry 98 Oxygen Delivery Method Room Air MDM - Extremity Injury (Lower) <Farrah Robles PA-C - Last Filed: 10/09/23 14:11> MDM Narrative Medical decision making narrative: 57-year-old male presents to the ED with 1 month of worsening right knee pain. Concern for fracture/dislocation versus musculoskeletal sprain/strain versus other. Given continued and worsening pain, will obtain CT scan to further characterize. Will give ketorolac for pain. Will reassess. CT without acute findings. Patient's symptoms likely due to musculoskeletal sprain/strain. Recommend RICE, Tylenol, ibuprofen, knee brace. Recommend follow-up with PCP as soon as possible. ED return precautions discussed with patient. Patient verbalized understanding. Medical records reviewed: Yes Discharge Plan Departure Patient Disposition: Home Clinical Impression: Acute knee pain Qualifiers: Laterality: right Qualified Code(s): M25.561 - Pain in right knee Instructions: DI for Knee Pain Activity Restrictions/Additional Instructions: You were evaluated in the ED today for right-sided knee pain. The CT scan did not show any fractures or dislocations. It appears that your knee pain might be due to a musculoskeletal sprain/strain. You may take 800 mg of ibuprofen every 8 hours with food. You may also take 1000 mg of Tylenol every 8 hours. It is also recommended that you rest the knee and elevated as much as possible. You may wear a knee brace for comfort. Please follow-up with your PCP as soon as possible for further evaluation. Return to the ED if you have worsening symptoms, numbness, tingling, weakness. Prescriptions: No Action trazodone 50 mg tablet 50 mg PO BEDTIME Qty: 90 3RF amlodipine 10 mg tablet 10 mg PO DAILY Qty: 90 3RF clobetasol 0.05 % cream 1 applic topical BID 14 Days Qty: 45 3RF rosuvastatin 5 mg tablet 5 mg PO QAM Qty: 90 3RF alprazolam 0.5 mg tablet 0.5 mg PO TID PRN (Reason: anxiety) Qty: 60 1RF aspirin [Adult Aspirin Regimen] 81 mg tablet,delayed release (DR/EC) 81 mg PO DAILY melatonin 10 mg capsule 10 mg PO BEDTIME Centrum Silver Ultra Men's 300-600-300 mcg tablet 1 tab PO DAILY bupropion HCl 300 mg tablet extended release 24 hr 300 mg PO DAILY Qty: 90 3RF fenofibrate micronized 134 mg capsule 134 mg PO DAILY Qty: 90 3RF lisinopril 20 mg tablet 20 mg PO QAM Qty: 90 3RF meloxicam 15 mg tablet 15 mg PO DAILY Qty: 30 3RF Referrals: Jorge Alberto Juarez MD [Primary Care Provider] - Stand Alone Forms: Patient Portal/API ED Sign-out <Casandra Gilliam DO - Last Filed: 10/10/23 07:37> Cosign ED Attending Luz Elena Attestation: I was immediately available in the department for consultation.
[2023-10-09] MEDS: KETOROLAC 30 MG/ML VIAL IM (12:38)
== END 2023-10-09 14:14 | disposition home or self-care (01) ==
PROVIDERS: Emergency Provider Student in an Organized Health Care Education/Training Program; PCP Internal Medicine
DX: M25.561 Pain in right knee (principal)
CPT/HCPCS: 73700; 96372; 99283; 99284; J1885

== ENCOUNTER → 2023-11-25 13:36 | Outpatient (CLI) | payer OTHER, SELFPAY ==
--- NOTE | 2023-11-25 14:39 | DI.MRI.S_ITS ---
PROCEDURE: MR KNEE RT WO CON INDICATIONS: INTERNAL DERANGEMENT OF RT KNEE TECHNIQUE: Noncontrast sagittal PD fast spin echo and T2 fast spin echo with fat saturation, sagittal 3-D FLASH with fat saturation; coronal T1 spin echo and PD fast spin echo with fat saturation, and axial PD fast spin echo with fat saturation through the knee. COMPARISON: [facility], CR, XR KNEE RT 3V, 10/05/2023, 11:17. FINDINGS: Image quality: Excellent. Menisci: There is truncation of the free edge of the medial meniscal body, consistent with radial tearing versus postsurgical sequelae. There is inferior extrusion of the medial meniscal body into the medial gutter. There is linear oblique high T2 signal intensity traversing the inner, middle, and peripheral thirds of the posterior horn/body junction of the medial meniscus, indicating oblique tearing. Linear horizontal high T2 signal intensity traverses the inner, middle, and peripheral thirds of the lateral meniscal body and posterior horn, demonstrating inferior articular surface extension, indicating horizontal tearing. Cruciate ligaments: The anterior and posterior cruciate ligaments appear intact. Medial structures: The medial collateral ligament appears intact. Visualized portions of the pes anserinus tendons appear normal. No abnormal bursal fluid. Lateral structures: The lateral collateral ligament demonstrates mild T2 signal elevation at the femoral origin. The long and short heads of the biceps femoris tendon appear intact. The popliteus tendon appears normal. Iliotibial band appears normal. Anterior structures: The quadriceps and patellar tendons appear intact. Patellar alignment is normal. No femoral trochlear dysplasia or ventral trochlear prominence. No edema in the infrapatellar fat pad. Bones and cartilage: No bone marrow contusions or fractures. There is mild articular cartilage loss diffusely overlying the weight-bearing aspects of the medial femoral condyle and medial tibial plateau. Moderate articular cartilage loss overlies the medial and lateral patellar facets. Joint space: There is a moderate knee joint effusion. No Smart's cyst. Normal appearing synovial plicae are incidentally noted. IMPRESSION: 1. Complex trapped medial meniscal tear. 2. Lateral meniscal tearing. 3. Partial-thickness lateral collateral ligament tear. 4. Knee joint effusion. Dictated by: Lis Gonzalez M.D. on 11/27/2023 at 11:16 Approved by: Lis Gonzalez M.D. on 11/27/2023 at 11:19
== END ==
PROVIDERS: PCP Internal Medicine; Referring Provider Orthopaedic Surgery Foot and Ankle Surgery; Visit Provider Orthopaedic Surgery Foot and Ankle Surgery
DX: S83.231A Complex tear of medial meniscus, current injury, right knee, initial encounter (principal); S83.281A Other tear of lateral meniscus, current injury, right knee, initial encounter; S83.421A Sprain of lateral collateral ligament of right knee, initial encounter; M23.91 Unspecified internal derangement of right knee; M25.461 Effusion, right knee
CPT/HCPCS: 73721

== ENCOUNTER → 2024-05-09 07:57 | Outpatient (CLI) | payer OTHER, SELFPAY ==
[2024-05-09 08:54] LABS: Alanine Aminotransferase 29 IU/L (<50); Albumin 4.6 g/dL (3.5-5.0); Albumin Globulin Ratio 1.8 (1.0-2.8); Alkaline Phosphatase 50 U/L (38-126); Aspartate Aminotransferase 31 IU/L (17-59); BUN Creatinine Ratio 18.6 (6-22); Bilirubin Total 0.7 mg/dL (0.2-1.3); Blood Urea Nitrogen 21 mg/dL (9-20); Calcium 9.3 mg/dL (8.4-10.2); Carbon Dioxide 29 mmol/L (22-32); Chloride 101 mmol/L (98-107); Cholesterol 183 mg/dL (140-199); Estimated Glomerular Filt Rate > 60 mL/min (>60); Globulin 2.5 g/dL (1.7-4.1); Glucose 115 mg/dL (70-100); HDL Cholesterol 40 mg/dL (40-60); HEMOLYSIS < 15 (0-50); LDL Cholesterol Calculated 92 mg/dL (<100); Potassium 4.3 mmol/L (3.4-5.1); Sodium 138 mmol/L (137-145); Total Protein 7.1 g/dL (6.3-8.2); Triglycerides 253 mg/dL (35-150)
[2024-05-09 09:05] LABS: LDL Cholesterol Direct 105 mg/dL (<100)
[2024-05-09 09:09] LABS: Free T4, Direct Thyroxine 0.96 ng/dL (0.78-2.19)
[2024-05-09 09:23] LABS: Thyroid Stimulating Hormone 4.69 uIU/mL (0.47-4.68)
[2024-05-09 09:26] LABS: Prostate Specific Antigen Scrn 0.588 ng/mL (0.1-4.0)
== END ==
LOC: LAB 07:58
PROVIDERS: PCP Internal Medicine; Referring Provider Internal Medicine; Visit Provider Internal Medicine
DX: Z12.5 Encounter for screening for malignant neoplasm of prostate (principal); E03.9 Hypothyroidism, unspecified; E78.1 Pure hyperglyceridemia; E78.2 Mixed hyperlipidemia
CPT/HCPCS: 36415; 80053; 80061; 83721; 84439; 84443; G0103

== ENCOUNTER → 2024-07-17 14:36 | Outpatient (CLI) | payer OTHER, SELFPAY | PROVIDERS: PCP Internal Medicine; Referring Provider Physician Assistant; Visit Provider Physician Assistant | DX: R00.2 Palpitations (principal); R07.9 Chest pain, unspecified | CPT/HCPCS: 93246; 93248 ==

== ENCOUNTER → 2024-10-25 15:36 | Outpatient (CLI) | payer OTHER, SELFPAY ==
[2024-10-25 17:14] LABS: Add Manual Diff / Slide Review NO; Basophils Absolute Auto 100 /uL (0-100); Eosinophils Absolute Auto 100 /uL (0-450); Eosinophils Percent Auto 1.1 % (2-4); Hematocrit 45.4 % (41-53); Hemoglobin 15.3 g/dL (13.5-17.5); Lymphocytes Absolute Auto 1500 /uL (1100-4500); Lymphocytes Percent Auto 18.1 % (25-40); Mean Corpuscular HGB Conc 33.8 % (30-36); Mean Corpuscular Hemoglobin 30.6 PG (26-34); Mean Corpuscular Volume 90.4 fL (80-100); Monocytes Absolute Auto 800 /uL (0-900); Monocytes Percent Auto 9.6 % (3-14); Neutrophils Absolute Auto 5700 /uL (1500-7000); Neutrophils Percent Auto 70.2 % (50-75); Platelet Count 283 X10^3/uL (150-400); Red Blood Cell Count 5.02 X10^6/uL (4.5-5.9); Red Cell Distribution Width 13.5 % (11.6-14.8); White Blood Cell Count 8.2 X10^3/uL (4.5-11.0)
[2024-10-25 17:39] LABS: Alanine Aminotransferase 17 IU/L (<50); Albumin 4.7 g/dL (3.5-5.0); Albumin Globulin Ratio 1.6 (1.0-2.8); Alkaline Phosphatase 44 U/L (38-126); Aspartate Aminotransferase 27 IU/L (17-59); BUN Creatinine Ratio 17.8 (6-22); Bilirubin Total 0.7 mg/dL (0.2-1.3); Blood Urea Nitrogen 21 mg/dL (9-20); Carbon Dioxide 26 mmol/L (22-32); Chloride 101 mmol/L (98-107); Estimated Glomerular Filt Rate > 60 mL/min (>60); Glucose 91 mg/dL (70-99); HEMOLYSIS < 15 (0-50); Lipase 102 U/L (23-300); Potassium 4.5 mmol/L (3.4-5.1); Sodium 137 mmol/L (137-145); Total Protein 7.7 g/dL (6.3-8.2)
[2024-10-25 18:09] LABS: TSH w/ Reflex to FT4 0.72 uIU/mL (0.47-4.68)
== END ==
PROVIDERS: PCP Internal Medicine; Referring Provider Internal Medicine; Visit Provider Internal Medicine
DX: R10.9 Unspecified abdominal pain (principal); E03.9 Hypothyroidism, unspecified
CPT/HCPCS: 36415; 80053; 83690; 84443; 85025

== ENCOUNTER → 2024-11-07 06:52 | Outpatient (CLI) | payer OTHER, SELFPAY ==
--- NOTE | 2024-11-07 06:53 | DI.US.S_ITS ---
PROCEDURE: US ABDOMEN COMPLETE INDICATIONS: BACK/ABDOMINAL PAIN TECHNIQUE: Real-time scanning was performed of the abdominal and retroperitoneal organs, with image documentation. COMPARISON: [facility], , US ABDOMEN COMPLETE, 02/20/2018, 11:18. FINDINGS: Liver: Liver is normal in size. Increased liver parenchymal echotexture is seen. No discrete solid appearing hepatic lesion. Gallbladder: No gallstones. No gallbladder wall thickening or pericholecystic fluid. No sonographic Elkins sign. Biliary ducts: Intrahepatic bile ducts are non-dilated. Extrahepatic bile duct is not well visualized due to overlying bowel gas. Pancreas: Not well visualized due to overlying bowel gas. Spleen: Spleen is normal in size and homogeneous in echotexture. Kidneys: Kidneys are normal in size and echotexture. Right kidney measures 12.7 cm long; left kidney measures 12.1 cm long. No hydronephrosis . 1.1 x 0.6 x 1.3 cm echogenic focus is noted in lower pole left kidney with through acoustic shadowing. No internal vascularity. No solid masses. Aorta: Visualized aorta is normal in caliber at less than 3 cm. Iliacs: Proximal common iliac arteries are normal in caliber at less than 2.5 cm. IVC: Intrahepatic inferior vena cava is patent. Miscellaneous: No free abdominal fluid. IMPRESSION: 1. Hepatic steatosis, no discrete hepatic lesion. 2. Normal appearing gallbladder. 3. No gross biliary ductal dilatation. CBD is not well visualized due to overlying bowel gas. 4. Pancreas is not well visualized due to overlying bowel gas. 5. Likely nonobstructing stone in lower pole left kidney. No hydronephrosis. No gross solid appearing renal lesion. Dictated by: Bolivar Pulido M.D. on 11/07/2024 at 14:16 Approved by: Bolivar Pulido M.D. on 11/07/2024 at 14:18
== END ==
LOC: US 06:53
PROVIDERS: PCP Internal Medicine; Referring Provider Internal Medicine; Visit Provider Internal Medicine
DX: K76.0 Fatty (change of) liver, not elsewhere classified (principal); R10.9 Unspecified abdominal pain
CPT/HCPCS: 76700